=== PATIENT | male | born 1950 | race African-American/Black ===

== ENCOUNTER 2019-04-28 13:32 | Inpatient (IN) | payer MEDICARE ==
[~2019-04-28] VITALS: Ht 182.9 cm; Wt 75.8 kg
[2019-04-28] VITALS (7 sets, daily range): BP systolic 138–152; BP diastolic 58–75
--- NOTE | 2019-04-28 14:44 | EKG ---
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
[2019-04-28] MEDS ORDERED: IV NORMAL SALINE 1000ML BAG 1,000 ML IV ONE (14:45)
[2019-04-28] MEDS ORDERED: PANTOPRAZOLE IV PUSH 40 MG VIAL. IVP ONE (14:45)
[2019-04-28 15:03] LABS: BILIRUBIN,URINE NEGATIVE (NEG); CLARITY,URINE CLEAR; COLOR,URINE YELLOW; NITRITE,URINE NEGATIVE (NEG); PH,URINE 5.5; PROTEIN,URINE NEGATIVE (NEG-TRACE); UROBILINOGEN,URINE 0.2 mg/dL (0.2 mg/dL)
--- NOTE | 2019-04-28 15:03 | PHYS DOC ---
Past Medical History Past Medical History: High Cholesterol, Hypertension Past Surgical History: No Surgical History Alcohol Use: Occasionally Additional Information: 3 BEERS A DAY Drug Use: None Adult General Chief Complaint Chief Complaint: DIZZY/LIGHT HEADED HPI HPI Patient is a 69 year old male who presents with pain and cough back pain and black stool and dizziness. Patient complaining of left lower back pain for about 15 days as a constant sharp pain without radiation and rated his pain as a moderate pain. Patient also complaining of episodes of black stool for the same time that was loose for the first few days and became formed for the last few days. Patient states he has had a bowel movement once a day or once every other day and denies rectal pain, nausea and vomiting, fever and chills, hematuria, ecchymosis, taking lots in her medication. Complaining of mild abdominal pain and states for the last 2 weeks had positional dizziness associated with palpitation and generalized weakness and shortness of breath without chest pain. Patient denies history of GI bleeding but state he had history of ulcer disease. Patient did not seek medical attention for the last 2 weeks and today he called his primary care physician and was recommended to come to emergency room. Review of Systems Review of Systems Constitutional: Denies fever or chills [] Eyes: Denies change in visual acuity, redness, or eye pain [] HENT: Denies nasal congestion or sore throat [] Respiratory: Denies cough, reports shortness of breath [] Cardiovascular: No additional information not addressed in HPI [] GI: Denies vomiting, reports abdominal pain, nausea, bloody stools. : Denies dysuria or hematuria [] Musculoskeletal: Denies back pain or joint pain [] Integument: Denies rash or skin lesions [] Neurologic: Denies headache, focal weakness or sensory changes [] Endocrine: Denies polyuria or polydipsia [] All other systems were reviewed and found to be within normal limits, except as documented in this note. Current Medications Current Medications Current Medications Medications (Trade) Dose Ordered Sig/Lo Start Time Stop Time Status Last Admin Dose Admin Pantoprazole Sodium (PROTONIX VIAL for IV PUSH) 40 mg 1X ONCE 04/28/19 14:45 04/28/19 14:52 DC 04/28/19 15:07 40 MG Sodium Chloride 1,000 ml @ 1,000 mls/hr 1X ONCE 04/28/19 14:45 04/28/19 15:44 DC 04/28/19 15:07 1,000 MLS/HR Allergies Allergies Allergies Coded Allergies Type Severity Reaction Last Updated Verified No Known Drug Allergies 04/28/19 No Physical Exam Physical Exam Constitutional: Well developed, well nourished, mild distress, non-toxic ap pearance , looks pale. [] HENT: Normocephalic, atraumatic. Eyes: PERRLA, EOMI, conjunctiva normal, no discharge. [] Neck: Normal range of motion, no tenderness, supple, no stridor. 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 Skin: Warm, dry, no erythema, no rash. [] Back: No tenderness, no CVA tenderness. [] Extremities: No tenderness, no cyanosis, no clubbing, ROM intact, no edema. [] Neurologic: Alert and oriented X 3, no focal deficits noted. [] Psychologic: Affect normal, judgement normal, mood normal. [] Current Patient Data Vital Signs Vital Signs Date Time Temp Pulse Resp B/P (MAP) Pulse Ox O2 Delivery O2 Flow Rate FiO2 04/28/19 14:30 98.6 93 17 140/63 (88) 98 Room Air 98.6 Lab Values Laboratory Tests Test 04/28/19 14:45 White Blood Count 6.4 x10^3/uL (4.0-11.0) Red Blood Count 2.24 x10^6/uL (4.30-5.70) L Hemoglobin 6.9 g/dL (13.0-17.5) *L Hematocrit 20.6 % (39.0-53.0) *L Mean Corpuscular Volume 92 fL (79-100) Mean Corpuscular Hemoglobin 31 pg (25-35) Mean Corpuscular Hemoglobin Concent 33 g/dL (31-37) Red Cell Distribution Width 14.5 % (11.5-14.5) Platelet Count 176 x10^3/uL (140-400) Neutrophils (%) (Auto) 72 % (31-73) Lymphocytes (%) (Auto) 18 % (24-48) L Monocytes (%) (Auto) 10 % (0-9) H Eosinophils (%) (Auto) 0 % (0-3) Basophils (%) (Auto) 0 % (0-3) Neutrophils # (Auto) 4.6 x10^3/uL (1.8-7.7) Lymphocytes # (Auto) 1.1 x10^3/uL (1.0-4.8) Monocytes # (Auto) 0.6 x10^3/uL (0.0-1.1) Eosinophils # (Auto) 0.0 x10^3/uL (0.0-0.7) Basophils # (Auto) 0.0 x10^3/uL (0.0-0.2) Prothrombin Time 13.9 SEC (11.7-14.0) Prothrombin Time INR 1.1 (0.8-1.1) Activated Partial Thromboplast Time 27 SEC (24-38) Urine Collection Type Unknown Urine Color Yellow Urine Clarity Clear Urine pH 5.5 Urine Specific [place] 1.020 Urine Protein Negative mg/dL (NEG-TRACE) Urine Glucose (UA) Negative mg/dL (NEG) Urine Ketones (Stick) Negative mg/dL (NEG) Urine Blood Negative (NEG) Urine Nitrite Negative (NEG) Urine Bilirubin Negative (NEG) Urine Urobilinogen Dipstick 0.2 mg/dL (0.2 mg/dL) Urine Leukocyte Esterase Negative (NEG) Urine RBC 0 /HPF (0-2) Urine WBC 0 /HPF (0-4) Urine Squamous Epithelial Cells Few /LPF Urine Bacteria 0 /HPF (0-FEW) Stool Occult Blood Positive (NEG) Sodium Level 136 mmol/L (136-145) Potassium Level 3.8 mmol/L (3.5-5.1) Chloride Level 104 mmol/L (98-107) Carbon Dioxide Level 26 mmol/L (21-32) Anion Gap 6 (6-14) Blood Urea Nitrogen 36 mg/dL (8-26) H Creatinine 1.4 mg/dL (0.7-1.3) H Estimated GFR (Cockcroft-Gault) 60.6 BUN/Creatinine Ratio 26 (6-20) H Glucose Level 134 mg/dL (70-99) H Calcium Level 8.9 mg/dL (8.5-10.1) Total Bilirubin 0.2 mg/dL (0.2-1.0) Aspartate Amino Transferase (AST) 17 U/L (15-37) Alanine Aminotransferase (ALT) 20 U/L (16-63) Alkaline Phosphatase 56 U/L (46-116) Troponin I Quantitative < 0.017 ng/mL (0.000-0.055) YA-Uqb-W-Type Natriuretic Peptide 105 pg/mL (0-124) Total Protein 6.7 g/dL (6.4-8.2) Albumin 3.4 g/dL (3.4-5.0) Albumin/Globulin Ratio 1.0 (1.0-1.7) Lipase 90 U/L (73-393) Laboratory Tests 04/28/19 14:45 Laboratory Tests 04/28/19 14:45 EKG EKG EKG interpreted by me. EKG at 1419 showed normal sinus rhythm at rate of 85, abnormal] axis deviation, low voltage QRS, nonspecific intraventricular block, poor R-wave progress in anteroseptal leads, no acute distress and T-wave elevat ion. Radiology/Procedures Radiology/Procedures [] Course & Med Decision Making Course & Med Decision Making Pertinent Labs and Imaging studies reviewed. (See chart for details) Evaluation of patient in ER showed 6-year-old male patient with complaining of melena and back pain and dizziness for the last 2 weeks. Patient had obvious melena in rectal exam and pale mucosa. Hemoglobin was 6.9. CT of abdomen and pelvis with contrast is pending. Patient requiring admission for further evaluation and treatment. Discussed with Dr. Swenson who is in agreement with admission. Discussed findings and plan with patient and family, who acknowledge understanding and agreement. Dragon Disclaimer Dragon Disclaimer This electronic medical record was generated, in whole or in part, using a voice recognition dictation system. Departure Departure Impression: Primary Impression: GI bleeding Additional Impressions: Anemia Renal insufficiency Dizziness Back pain Disposition: 09 ADMITTED INPATIENT (at 1538) Admitting Physician: LOIS (Dr. Swenson accepted admission at 1537) Condition: IMPROVED Referrals: UNKNOWN PCP NAME (PCP) Problem Qualifiers Primary Impression: GI bleeding GI bleed type/associated pathology: unspecified gastrointestinal hemorrhage type Qualified Codes: K92.2 - Gastrointestinal hemorrhage, unspecified Additional Impressions: Anemia Anemia type: unspecified type Qualified Codes: D64.9 - Anemia, unspecified Back pain Back pain location: back pain in unspecified location Chronicity: unspecified Back pain laterality: unspecified Qualified Codes: M54.9 - Dorsalgia, unspecified CESAR ESPINOZA MD Apr 28, 2019 15:03
[2019-04-28 15:05] LABS: FECAL OB PT POSITIVE (NEG)
[2019-04-28 15:06] LABS: BASO % 0 % (0-3); EOS % 0 % (0-3); LYMPH # 1.1 x10^3/uL (1.0-4.8); LYMPH % 18 % (24-48); MEAN CORPUSCULAR HEMOGLOBIN 31 pg (25-35); MEAN CORPUSCULAR HGB CONC 33 g/dL (31-37); MEAN CORPUSCULAR VOLUME 92 fL (79-100); MONO # 0.6 x10^3/uL (0.0-1.1); MONO % 10 % (0-9); NEUT # 4.6 x10^3/uL (1.8-7.7); NEUT % 72 % (31-73); PLATELET COUNT 176 x10^3/uL (140-400); RED BLOOD COUNT 2.24 x10^6/uL (4.30-5.70); RED CELL DISTRIBUTION WIDTH 14.5 % (11.5-14.5); WHITE BLOOD COUNT 6.4 x10^3/uL (4.0-11.0)
[2019-04-28 15:10] LABS: BACTERIA,URINE 0 /HPF (0-FEW); RBC,URINE 0 /HPF (0-2); SQUAMOUS EPITHELIAL CELL,UR FEW /LPF; WBC,URINE 0 /HPF (0-4)
[2019-04-28 15:14] LABS: HEMOGLOBIN 6.9 g/dL (13.0-17.5)
[2019-04-28 15:15] LABS: HEMATOCRIT 20.6 % (39.0-53.0)
[2019-04-28 15:16] LABS: PROTHROMBIN TIME PATIENT 13.9 SEC (11.7-14.0)
[2019-04-28 15:21] LABS: CALCIUM 8.9 mg/dL (8.5-10.1); CREATININE 1.4 mg/dL (0.7-1.3); GFR 60.6; POTASSIUM 3.8 mmol/L (3.5-5.1)
[2019-04-28 15:27] LABS: ALBUMIN 3.4 g/dL (3.4-5.0); TOTAL BILIRUBIN 0.2 mg/dL (0.2-1.0); TOTAL PROTEIN 6.7 g/dL (6.4-8.2)
[2019-04-28] MEDS: IV NORMAL SALINE 1000ML BAG 1,000 ML IV SCH (15:59)
[2019-04-28] MEDS ORDERED: IOHEXOL 300 MG/ML 100ML VIAL. IV ONE (16:00)
[2019-04-28] MEDS ORDERED: CONTRAST GIVEN. MC PRN (16:00)
[2019-04-28] MEDS ORDERED: IOHEXOL 240 MG/ML 50ML VIAL. PO ONE (16:00)
[2019-04-28] MEDS: PANTOPRAZOLE SODIUM IV DRIP 80 MG in IV NORMAL SALINE 100ML 100 ML IV SCH (16:00)
--- NOTE | 2019-04-28 16:26 | PDOC2 ---
GI CONSULT Reason For Consult: Melena HPI: HPI: 69 y/o male seen in ER w/ Dr. Be. Black stools and left-sided pain x 2 weeks - first stools were loose, now are sticky and more formed. Also maybe had some epigastric tenderness. Found w/ Hgb 6.9, MCV 92, normal plt, BUN 36, Cr 1.4. Fecal occult was positive. Currently drinking contrast for CT. Takes ASA 81mg QD. Denies reflux/heartburn, n/v, constipation, hematochezia, melena. Appetite is good but might have lost some weight. H/o perforated ulcer w/ surgery years ago at [place]. Can't recall previous EGD or colonoscopy. No GB, liver, or pancreas history. Denies NSAIDs - records from PCP mention Medrol dose pack. PMH: PMH: HTN, HLD, allergic rhinitis, perforated ulcer w/ oversew FH: Family History: Cancer (brother - prostate), DM Social History: Smoke: No ALCOHOL: other (3-4 beers daily) Drugs: None ROS: GEN: Denies fevers, chills, sweats HEENT: Denies blurred vision, sore throat CV: Denies chest pain RESP: Denies shortness of air, cough GI: Per HPI : Denies hematuria, dysuria ENDO: +weight loss NEURO: Denies confusion, dizziness MSK: Denies weakness, joint pain/swelling SKIN: Denies jaundice, pruritus Vitals: Vitals: Vital Signs Date Time Temp Pulse Resp B/P (MAP) Pulse Ox O2 Delivery O2 Flow Rate FiO2 04/28/19 14:30 98.6 93 17 140/63 (88) 98 Room Air 98.6 Labs: Labs: Laboratory Tests Test 04/28/19 14:45 White Blood Count 6.4 x10^3/uL (4.0-11.0) Red Blood Count 2.24 x10^6/uL (4.30-5.70) Hemoglobin 6.9 g/dL (13.0-17.5) Hematocrit 20.6 % (39.0-53.0) Mean Corpuscular Volume 92 fL (79-100) Mean Corpuscular Hemoglobin 31 pg (25-35) Mean Corpuscular Hemoglobin Concent 33 g/dL (31-37) Red Cell Distribution Width 14.5 % (11.5-14.5) Platelet Count 176 x10^3/uL (140-400) Neutrophils (%) (Auto) 72 % (31-73) Lymphocytes (%) (Auto) 18 % (24-48) Monocytes (%) (Auto) 10 % (0-9) Eosinophils (%) (Auto) 0 % (0-3) Basophils (%) (Auto) 0 % (0-3) Neutrophils # (Auto) 4.6 x10^3/uL (1.8-7.7) Lymphocytes # (Auto) 1.1 x10^3/uL (1.0-4.8) Monocytes # (Auto) 0.6 x10^3/uL (0.0-1.1) Eosinophils # (Auto) 0.0 x10^3/uL (0.0-0.7) Basophils # (Auto) 0.0 x10^3/uL (0.0-0.2) Prothrombin Time 13.9 SEC (11.7-14.0) Prothromb Time International Ratio 1.1 (0.8-1.1) Activated Partial Thromboplast Time 27 SEC (24-38) Urine Collection Type Unknown Urine Color Yellow Urine Clarity Clear Urine pH 5.5 Urine Specific [place] 1.020 Urine Protein Negative mg/dL (NEG-TRACE) Urine Glucose (UA) Negative mg/dL (NEG) Urine Ketones (Stick) Negative mg/dL (NEG) Urine Blood Negative (NEG) Urine Nitrite Negative (NEG) Urine Bilirubin Negative (NEG) Urine Urobilinogen Dipstick 0.2 mg/dL (0.2 mg/dL) Urine Leukocyte Esterase Negative (NEG) Urine RBC 0 /HPF (0-2) Urine WBC 0 /HPF (0-4) Urine Squamous Epithelial Cells Few /LPF Urine Bacteria 0 /HPF (0-FEW) Stool Occult Blood Positive (NEG) Sodium Level 136 mmol/L (136-145) Potassium Level 3.8 mmol/L (3.5-5.1) Chloride Level 104 mmol/L (98-107) Carbon Dioxide Level 26 mmol/L (21-32) Anion Gap 6 (6-14) Blood Urea Nitrogen 36 mg/dL (8-26) Creatinine 1.4 mg/dL (0.7-1.3) Estimated GFR (Cockcroft-Gault) 60.6 BUN/Creatinine Ratio 26 (6-20) Glucose Level 134 mg/dL (70-99) Calcium Level 8.9 mg/dL (8.5-10.1) Total Bilirubin 0.2 mg/dL (0.2-1.0) Aspartate Amino Transf (AST/SGOT) 17 U/L (15-37) Alanine Aminotransferase (ALT/SGPT) 20 U/L (16-63) Alkaline Phosphatase 56 U/L (46-116) Troponin I Quantitative < 0.017 ng/mL (0.000-0.055) UL-Sga-O-Type Natriuretic Peptide 105 pg/mL (0-124) Total Protein 6.7 g/dL (6.4-8.2) Albumin 3.4 g/dL (3.4-5.0) Albumin/Globulin Ratio 1.0 (1.0-1.7) Lipase 90 U/L (73-393) Allergies: Coded Allergies: No Known Drug Allergies (Unverified , 04/28/19) Medications: Current Medications Medications (Trade) Dose Ordered Sig/Lo Route PRN Reason Start Time Stop Time Status Last Admin Dose Admin Pantoprazole Sodium (PROTONIX VIAL for IV PUSH) 40 mg 1X ONCE IVP 04/28/19 14:45 04/28/19 14:52 DC 04/28/19 15:07 Sodium Chloride 1,000 ml @ 1,000 mls/hr 1X ONCE IV 04/28/19 14:45 04/28/19 15:44 DC 04/28/19 15:07 Sodium Chloride 1,000 ml @ 100 mls/hr Q10H IV 04/28/19 15:37 04/29/19 15:36 04/28/19 15:59 Pantoprazole Sodium 80 mg/ Sodium Chloride 100 ml @ 10 mls/hr Q10H IV 04/28/19 15:45 04/28/19 16:00 PE: GEN: NAD HEENT: Atraumatic, PERRL LUNGS: CTAB HEART: RRR ABD: NABS, S/ND/NT EXTREMITY: No edema SKIN: No rashes, no jaundice NEURO/PSYCH: A & O 3 A/P: A/P: Dark stools Anemia, hemoccult positive H/o perforated ulcer CRC screen - none ?CKD ASA use -- Agree w/ transfusion. Could have clears. Agree w/ PPI - could change to IV push or PO. Can plan for EGD on Wednesday - can't do tonight because drinking contrast for CT GALE-DARLING FLORES Apr 28, 2019 16:26
--- NOTE | 2019-04-28 17:33 | RAD ---
CT abdomen and pelvis with contrast HISTORY: Melena, anemia, GI bleeding. PQRS statement: CT scans at this facility use dose reduction including either automated exposure control, iterative reconstructions, and /or weight based radiation dosing via mA and kV modification when appropriate to reduce radiation dose to as low as reasonably achievable. TECHNIQUE: Helical CT imaging abdomen and pelvis with 75 mL Omnipaque 300 intravenous contrast and oral contrast. COMPARISON: CT abdomen and pelvis February 12, 2011. Abdomen findings: Calcified granuloma left lung base. 7 cm right renal lower pole cyst and smaller bilateral renal hypodensities several of which are too small to characterize due to volume averaging but are stable to prior imaging most likely additional cysts. Adrenals, liver, gallbladder, pancreas and spleen are unremarkable. Groundglass density and subcentimeter mesenteric lymph nodes are mildly decreased since the prior exam with mild persistent edema most likely representing chronic or recurrent panniculitis. No enlarged adenopathy. Appendix is not visualized could be surgically absent or obscured by surrounding bowel loops no changes of appendicitis evident. No bowel obstruction or inflammatory change. There is prominent tortuosity of the sigmoid colon however there is no evidence of a closed loop obstruction or dilation of the more proximal bowel to suggest volvulus, and this is similar the prior exam. There is a large volume of stool. Aortoiliac artery calcified plaque. Pelvis findings: Bladder, prostate, rectum and bones are unremarkable. No pelvic fluid or adenopathy. IMPRESSION: 1. Large volume of stool may be constipation. Tortuosity of the sigmoid colon without volvulus as described above. 2. Appendix could not be visualized. 3. Renal cysts again demonstrated. 4. 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 Electronically signed by: Wallace Rodgers MD (04/28/2019 5:30 PM) [facility]
--- NOTE | 2019-04-28 22:35 | PDOC1 ---
History and Physical Date of Admission Date of Admission DATE: 04/28/19 TIME: 22:34 Source Source: Chart review, Patient History of Present Illness History of Present Illness Mr. Spann is a 69 year old male admit from the ER, presented with weakness and dyspnea on exertion, he also has had some back pain and black stool and dizziness. NOted left lower back pain for about 15 days as a constant sharp pain without radiation and rated his pain as a moderate pain. He complains of 2 weeks of darker stool, now black, ER team described as melena. some loose stools. No rectal pain, nausea and vomiting, fever and chills, He also had now had generalized weakness and shortness of breath without chest pain. Pt is retired. Past Medical History Cardiovascular: HTN Pulmonary: No pertinent hx Hepatobiliary: No pertinent hx Psych: No pertinent hx Musculoskeletal: low back pain Infectious disease: No pertinent hx Social History Smoke: No ALCOHOL: none (3-4 beers daily) Drugs: None Current Problem List Problem List Problems Medical Problems: (1) Anemia Status: Acute (2) Back pain Status: Acute (3) Dizziness Status: Acute (4) GI bleeding Status: Acute (5) Renal insufficiency Status: Acute Current Medications Current Medications Current Medications Pantoprazole Sodium (PROTONIX VIAL for IV PUSH) 40 mg 1X ONCE IVP Last administered on 04/28/19at 15:07; Start 04/28/19 at 14:45; Stop 04/28/19 at 14:52; Status DC Sodium Chloride 1,000 ml @ 1,000 mls/hr 1X ONCE IV Last administered on 04/28/19at 15:07; Start 04/28/19 at 14:45; Stop 04/28/19 at 15:44; Status DC Sodium Chloride 1,000 ml @ 100 mls/hr Q10H IV Last administered on 04/28/19at 15:59; Start 04/28/19 at 15:37; Stop 04/29/19 at 15:36 Pantoprazole Sodium 80 mg/ Sodium Chloride 100 ml @ 10 mls/hr Q10H IV Last administered on 04/28/19at 16:00; Start 04/28/19 at 15:45 Iohexol (Omnipaque 240 Mg/ml) 30 ml 1X ONCE PO Last administered on 04/28/19at 16:00; Start 04/28/19 at 16:00; Stop 04/28/19 at 16:01; Status DC Iohexol (Omnipaque 300 Mg/ml) 75 ml 1X ONCE IV Last administered on 04/28/19at 17:00; Start 04/28/19 at 16:00; Stop 04/28/19 at 16:01; Status DC Info (CONTRAST GIVEN -- Rx MONITORING) 1 each PRN DAILY PRN MC SEE COMMENTS; Start 04/28/19 at 16:00; Stop 04/30/19 at 15:59 Allergies Allergies: Coded Allergies: No Known Drug Allergies (Unverified , 04/28/19) ROS General: No: Chills, Night Sweats, Fatigue, Malaise, Appetite, Other PSYCHOLOGICAL ROS: No: Anxiety, Behavioral Disorder, Concentration difficultie, Decreased libido, Depression, Disorientation, Hallucinations, Hostility, Irritablity, Memory difficulties, Mood Swings, Obsessive thoughts, Physical abuse, Sexual abuse, Sleep disturbances, Suicidal ideation, Other Eyes: No Blurry vision, No Decreased vision, No Double vision, No Dry eyes, No Excessive tearing, No Eye Pain, No Itchy Eyes, No Loss of vision, No Photophobia, No Scotomata, No Uses contacts, No Uses glasses, No Other HEENT: No: Heacaches, Visual Changes, Hearing change, Nasal congestion, Nasal discharge, Oral lesions, Sinus pain, Sore Throat, Epistaxis, Sneezing, Snoring, Tinnitus, Vertigo, Vocal changes, Other Respiratory: YES: SOB with excertion, Tachypnea; No: Cough, Hemoptysis, Orthopnea, Pleuritic Pain, Shortness of breath, Sputum Changes, Stridor, Wheezing, Other Cardiovascular: No Chest Pain, No Palpitations, No Orthopnea, No Paroxysmal Noc. Dyspnea, No Edema, No Lt Headedness, No Other Gastrointestinal: No Nausea, No Vomiting, No Abdominal Pain, No Diarrhea, No Constipation, No Melena, No Hematochezia, No Other Genitourinary: No Dysuria, No Frequency, No Incontinence, No Hematuria, No Retention, No Discharge, No Urgency, No Pain, No Flank Pain, No Other, No , No , No , No , No , No , No Musculoskeletal: Yes Joint Stiffness Neurological: No Behavorial Changes, No Bowel/Bladder ControlChng, No Confusion , No Dizziness, No Gait Disturbance, No Headaches, No Impaired Coord/balance, No Memory Loss, No Numbness/Tingling, No Seizures, No Speech Problems, No Tremors, No Visual Changes, No Weakness, No Other Skin: Yes Dry Skin; No Eczema, No Hair Changes, No Lumps, No Mole Changes, No Mottling, No Nail Changes, No Pruritus, No Rash, No Skin Lesion Changes, No Other, No Acne Physical Exam General: Alert, Oriented X3, mild distress HEENT: Atraumatic, PERRLA, EOMI Lungs: Clear to auscultation, Normal air movement Heart: RRR, murmurs Abdomen: Normal bowel sounds, Soft Rectal Exam: not examined Extremities: No cyanosis, No edema Skin: No rashes, No breakdown, No significant lesion Neuro: Normal gait, Normal speech, Sensation intact Psych/Mental Status: Mental status NL, Mood NL Vitals Vitals Vital Signs Date Time Temp Pulse Resp B/P (MAP) Pulse Ox O2 Delivery O2 Flow Rate FiO2 04/28/19 22:05 98.7 74 16 141/63 98.7 04/28/19 20:20 Room Air 04/28/19 20:17 99 Labs Labs Laboratory Tests Test 04/28/19 14:45 White Blood Count 6.4 x10^3/uL (4.0-11.0) Red Blood Count 2.24 x10^6/uL (4.30-5.70) Hemoglobin 6.9 g/dL (13.0-17.5) Hematocrit 20.6 % (39.0-53.0) Mean Corpuscular Volume 92 fL (79-100) Mean Corpuscular Hemoglobin 31 pg (25-35) Mean Corpuscular Hemoglobin Concent 33 g/dL (31-37) Red Cell Distribution Width 14.5 % (11.5-14.5) Platelet Count 176 x10^3/uL (140-400) Neutrophils (%) (Auto) 72 % (31-73) Lymphocytes (%) (Auto) 18 % (24-48) Monocytes (%) (Auto) 10 % (0-9) Eosinophils (%) (Auto) 0 % (0-3) Basophils (%) (Auto) 0 % (0-3) Neutrophils # (Auto) 4.6 x10^3/uL (1.8-7.7) Lymphocytes # (Auto) 1.1 x10^3/uL (1.0-4.8) Monocytes # (Auto) 0.6 x10^3/uL (0.0-1.1) Eosinophils # (Auto) 0.0 x10^3/uL (0.0-0.7) Basophils # (Auto) 0.0 x10^3/uL (0.0-0.2) Prothrombin Time 13.9 SEC (11.7-14.0) Prothromb Time International Ratio 1.1 (0.8-1.1) Activated Partial Thromboplast Time 27 SEC (24-38) Urine Collection Type Unknown Urine Color Yellow Urine Clarity Clear Urine pH 5.5 Urine Specific Vernal 1.020 Urine Protein Negative mg/dL (NEG-TRACE) Urine Glucose (UA) Negative mg/dL (NEG) Urine Ketones (Stick) Negative mg/dL (NEG) Urine Blood Negative (NEG) Urine Nitrite Negative (NEG) Urine Bilirubin Negative (NEG) Urine Urobilinogen Dipstick 0.2 mg/dL (0.2 mg/dL) Urine Leukocyte Esterase Negative (NEG) Urine RBC 0 /HPF (0-2) Urine WBC 0 /HPF (0-4) Urine Squamous Epithelial Cells Few /LPF Urine Bacteria 0 /HPF (0-FEW) Stool Occult Blood Positive (NEG) Sodium Level 136 mmol/L (136-145) Potassium Level 3.8 mmol/L (3.5-5.1) Chloride Level 104 mmol/L (98-107) Carbon Dioxide Level 26 mmol/L (21-32) Anion Gap 6 (6-14) Blood Urea Nitrogen 36 mg/dL (8-26) Creatinine 1.4 mg/dL (0.7-1.3) Estimated GFR (Cockcroft-Gault) 60.6 BUN/Creatinine Ratio 26 (6-20) Glucose Level 134 mg/dL (70-99) Calcium Level 8.9 mg/dL (8.5-10.1) Iron Level 67 ug/dL (65-175) Total Iron Binding Capacity 261 ug/dL (250-450) Iron Saturation 26 % (15-34) Total Bilirubin 0.2 mg/dL (0.2-1.0) Aspartate Amino Transf (AST/SGOT) 17 U/L (15-37) Alanine Aminotransferase (ALT/SGPT) 20 U/L (16-63) Alkaline Phosphatase 56 U/L (46-116) Troponin I Quantitative < 0.017 ng/mL (0.000-0.055) OW-[id number]-[id number]-Type Natriuretic Peptide 105 pg/mL (0-124) Total Protein 6.7 g/dL (6.4-8.2) Albumin 3.4 g/dL (3.4-5.0) Albumin/Globulin Ratio 1.0 (1.0-1.7) Lipase 90 U/L (73-393) Laboratory Tests Test 04/28/19 14:45 White Blood Count 6.4 x10^3/uL (4.0-11.0) Red Blood Count 2.24 x10^6/uL (4.30-5.70) Hemoglobin 6.9 g/dL (13.0-17.5) Hematocrit 20.6 % (39.0-53.0) Mean Corpuscular Volume 92 fL (79-100) Mean Corpuscular Hemoglobin 31 pg (25-35) Mean Corpuscular Hemoglobin Concent 33 g/dL (31-37) Red Cell Distribution Width 14.5 % (11.5-14.5) Platelet Count 176 x10^3/uL (140-400) Neutrophils (%) (Auto) 72 % (31-73) Lymphocytes (%) (Auto) 18 % (24-48) Monocytes (%) (Auto) 10 % (0-9) Eosinophils (%) (Auto) 0 % (0-3) Basophils (%) (Auto) 0 % (0-3) Neutrophils # (Auto) 4.6 x10^3/uL (1.8-7.7) Lymphocytes # (Auto) 1.1 x10^3/uL (1.0-4.8) Monocytes # (Auto) 0.6 x10^3/uL (0.0-1.1) Eosinophils # (Auto) 0.0 x10^3/uL (0.0-0.7) Basophils # (Auto) 0.0 x10^3/uL (0.0-0.2) Prothrombin Time 13.9 SEC (11.7-14.0) Prothromb Time International Ratio 1.1 (0.8-1.1) Activated Partial Thromboplast Time 27 SEC (24-38) Urine Collection Type Unknown Urine Color Yellow Urine Clarity Clear Urine pH 5.5 Urine Specific Vernal 1.020 Urine Protein Negative mg/dL (NEG-TRACE) Urine Glucose (UA) Negative mg/dL (NEG) Urine Ketones (Stick) Negative mg/dL (NEG) Urine Blood Negative (NEG) Urine Nitrite Negative (NEG) Urine Bilirubin Negative (NEG) Urine Urobilinogen Dipstick 0.2 mg/dL (0.2 mg/dL) Urine Leukocyte Esterase Negative (NEG) Urine RBC 0 /HPF (0-2) Urine WBC 0 /HPF (0-4) Urine Squamous Epithelial Cells Few /LPF Urine Bacteria 0 /HPF (0-FEW) Stool Occult Blood Positive (NEG) Sodium Level 136 mmol/L (136-145) Potassium Level 3.8 mmol/L (3.5-5.1) Chloride Level 104 mmol/L (98-107) Carbon Dioxide Level 26 mmol/L (21-32) Anion Gap 6 (6-14) Blood Urea Nitrogen 36 mg/dL (8-26) Creatinine 1.4 mg/dL (0.7-1.3) Estimated GFR (Cockcroft-Gault) 60.6 BUN/Creatinine Ratio 26 (6-20) Glucose Level 134 mg/dL (70-99) Calcium Level 8.9 mg/dL (8.5-10.1) Iron Level 67 ug/dL (65-175) Total Iron Binding Capacity 261 ug/dL (250-450) Iron Saturation 26 % (15-34) Total Bilirubin 0.2 mg/dL (0.2-1.0) Aspartate Amino Transf (AST/SGOT) 17 U/L (15-37) Alanine Aminotransferase (ALT/SGPT) 20 U/L (16-63) Alkaline Phosphatase 56 U/L (46-116) Troponin I Quantitative < 0.017 ng/mL (0.000-0.055) LM-Rxq-L-Type Natriuretic Peptide 105 pg/mL (0-124) Total Protein 6.7 g/dL (6.4-8.2) Albumin 3.4 g/dL (3.4-5.0) Albumin/Globulin Ratio 1.0 (1.0-1.7) Lipase 90 U/L (73-393) VTE Prophylaxis Ordered VTE Prophylaxis Devices: Yes VTE Pharmacological Prophylaxi: Contraindicated Assessment/Plan Assessment/Plan symptomatic anemia GI bleed, upper melena consult GI, start PPI gtt, clears, admit PRBC ordered JUANY GRIFFITH MD Apr 28, 2019 22:35
[2019-04-29] VITALS (9 sets, daily range): BP systolic 134–150; BP diastolic 61–71
[2019-04-29] MEDS: PANTOPRAZOLE SODIUM IV DRIP 80 MG in IV NORMAL SALINE 100ML 100 ML IV SCH ×3 (01:41→22:18)
[2019-04-29] MEDS: IV NORMAL SALINE 1000ML BAG 1,000 ML IV SCH ×2 (01:41→11:54)
[2019-04-29 05:11] LABS: BASO % 0 % (0-3); EOS % 0 % (0-3); HEMATOCRIT 26.4 % (39.0-53.0); HEMOGLOBIN 8.7 g/dL (13.0-17.5); LYMPH # 1.5 x10^3/uL (1.0-4.8); LYMPH % 24 % (24-48); MEAN CORPUSCULAR HEMOGLOBIN 30 pg (25-35); MEAN CORPUSCULAR HGB CONC 33 g/dL (31-37); MEAN CORPUSCULAR VOLUME 90 fL (79-100); MONO # 0.7 x10^3/uL (0.0-1.1); MONO % 10 % (0-9); NEUT # 4.3 x10^3/uL (1.8-7.7); NEUT % 66 % (31-73); PLATELET COUNT 163 x10^3/uL (140-400); RED BLOOD COUNT 2.92 x10^6/uL (4.30-5.70); WHITE BLOOD COUNT 6.6 x10^3/uL (4.0-11.0)
[2019-04-29 08:05] LABS: BASO % 0 % (0-3); EOS % 0 % (0-3); HEMATOCRIT 26.5 % (39.0-53.0); HEMOGLOBIN 8.9 g/dL (13.0-17.5); LYMPH # 1.3 x10^3/uL (1.0-4.8); LYMPH % 22 % (24-48); MEAN CORPUSCULAR HEMOGLOBIN 30 pg (25-35); MEAN CORPUSCULAR HGB CONC 34 g/dL (31-37); MEAN CORPUSCULAR VOLUME 90 fL (79-100); MONO # 0.7 x10^3/uL (0.0-1.1); MONO % 11 % (0-9); NEUT # 3.8 x10^3/uL (1.8-7.7); NEUT % 66 % (31-73); PLATELET COUNT 158 x10^3/uL (140-400); RED BLOOD COUNT 2.95 x10^6/uL (4.30-5.70); RED CELL DISTRIBUTION WIDTH 13.8 % (11.5-14.5); WHITE BLOOD COUNT 5.7 x10^3/uL (4.0-11.0)
[2019-04-29 08:28] LABS: CALCIUM 9.2 mg/dL (8.5-10.1); CREATININE 1.1 mg/dL (0.7-1.3); GFR 80.1; POTASSIUM 4.1 mmol/L (3.5-5.1)
[2019-04-29] MEDS ORDERED: BISACODYL 10 MG SUPP.RECT. PR PRN (09:15)
--- NOTE | 2019-04-29 09:16 | PDOC ---
PROGRESS NOTES Chief Complaint Chief Complaint A/P: Acute blood loss anemia - improved Hb from 6.9 to 8.9 with 2u PRBC ELLY - likely vasomotor nephropathy from poor PO intake, constipation, Cr improved from 1.4 already HTN HLD History of Present Illness History of Present Illness Mr Spann is a 69 y/o male w/ PMHx who c/o black stools and left-sided pain for 2 weeks with some epigastric tenderness who was found w/ Hgb 6.9, MCV 92, normal plt, BUN 36, Cr 1.4. Fecal occult was positive. Admitted with GI consulted for further care. This morning still having pain, states it is a bit better. He is asking when he can eat solid food again. Has had 1 dark melena stool overnight. Denies CP or SOB. Cr improved already. Vitals Vitals Vital Signs Date Time Temp Pulse Resp B/P (MAP) Pulse Ox O2 Delivery O2 Flow Rate FiO2 04/29/19 07:00 97.9 74 18 145/67 (93) 92 Room Air 97.9 Physical Exam General: Alert, Oriented X3, mild distress Abdomen: Normal bowel sounds, Soft Extremities: No cyanosis, No edema Skin: No rashes, No breakdown, No significant lesion Labs LABS Laboratory Tests Test 04/28/19 14:45 04/29/19 04:10 04/29/19 08:00 White Blood Count 6.4 x10^3/uL (4.0-11.0) 6.6 x10^3/uL (4.0-11.0) 5.7 x10^3/uL (4.0-11.0) Red Blood Count 2.24 x10^6/uL (4.30-5.70) 2.92 x10^6/uL (4.30-5.70) 2.95 x10^6/uL (4.30-5.70) Hemoglobin 6.9 g/dL (13.0-17.5) 8.7 g/dL (13.0-17.5) 8.9 g/dL (13.0-17.5) Hematocrit 20.6 % (39.0-53.0) 26.4 % (39.0-53.0) 26.5 % (39.0-53.0) Mean Corpuscular Volume 92 fL (79-100) 90 fL (79-100) 90 fL (79-100) Mean Corpuscular Hemoglobin 31 pg (25-35) 30 pg (25-35) 30 pg (25-35) Mean Corpuscular Hemoglobin Concent 33 g/dL (31-37) 33 g/dL (31-37) 34 g/dL (31-37) Red Cell Distribution Width 14.5 % (11.5-14.5) 14.0 % (11.5-14.5) 13.8 % (11.5-14.5) Platelet Count 176 x10^3/uL (140-400) 163 x10^3/uL (140-400) 158 x10^3/uL (140-400) Neutrophils (%) (Auto) 72 % (31-73) 66 % (31-73) 66 % (31-73) Lymphocytes (%) (Auto) 18 % (24-48) 24 % (24-48) 22 % (24-48) Monocytes (%) (Auto) 10 % (0-9) 10 % (0-9) 11 % (0-9) Eosinophils (%) (Auto) 0 % (0-3) 0 % (0-3) 0 % (0-3) Basophils (%) (Auto) 0 % (0-3) 0 % (0-3) 0 % (0-3) Neutrophils # (Auto) 4.6 x10^3/uL (1.8-7.7) 4.3 x10^3/uL (1.8-7.7) 3.8 x10^3/uL (1.8-7.7) Lymphocytes # (Auto) 1.1 x10^3/uL (1.0-4.8) 1.5 x10^3/uL (1.0-4.8) 1.3 x10^3/uL (1.0-4.8) Monocytes # (Auto) 0.6 x10^3/uL (0.0-1.1) 0.7 x10^3/uL (0.0-1.1) 0.7 x10^3/uL (0.0-1.1) Eosinophils # (Auto) 0.0 x10^3/uL (0.0-0.7) 0.0 x10^3/uL (0.0-0.7) 0.0 x10^3/uL (0.0-0.7) Basophils # (Auto) 0.0 x10^3/uL (0.0-0.2) 0.0 x10^3/uL (0.0-0.2) 0.0 x10^3/uL (0.0-0.2) Prothrombin Time 13.9 SEC (11.7-14.0) Prothromb Time International Ratio 1.1 (0.8-1.1) Activated Partial Thromboplast Time 27 SEC (24-38) Urine Collection Type Unknown Urine Color Yellow Urine Clarity Clear Urine pH 5.5 Urine Specific Mobile 1.020 Urine Protein Negative mg/dL (NEG-TRACE) Urine Glucose (UA) Negative mg/dL (NEG) Urine Ketones (Stick) Negative mg/dL (NEG) Urine Blood Negative (NEG) Urine Nitrite Negative (NEG) Urine Bilirubin Negative (NEG) Urine Urobilinogen Dipstick 0.2 mg/dL (0.2 mg/dL) Urine Leukocyte Esterase Negative (NEG) Urine RBC 0 /HPF (0-2) Urine WBC 0 /HPF (0-4) Urine Squamous Epithelial Cells Few /LPF Urine Bacteria 0 /HPF (0-FEW) Stool Occult Blood Positive (NEG) Sodium Level 136 mmol/L (136-145) 142 mmol/L (136-145) Potassium Level 3.8 mmol/L (3.5-5.1) 4.1 mmol/L (3.5-5.1) Chloride Level 104 mmol/L (98-107) 109 mmol/L (98-107) Carbon Dioxide Level 26 mmol/L (21-32) 25 mmol/L (21-32) Anion Gap 6 (6-14) 8 (6-14) Blood Urea Nitrogen 36 mg/dL (8-26) 19 mg/dL (8-26) Creatinine 1.4 mg/dL (0.7-1.3) 1.1 mg/dL (0.7-1.3) Estimated GFR (Cockcroft-Gault) 60.6 80.1 BUN/Creatinine Ratio 26 (6-20) Glucose Level 134 mg/dL (70-99) 110 mg/dL (70-99) Calcium Level 8.9 mg/dL (8.5-10.1) 9.2 mg/dL (8.5-10.1) Iron Level 67 ug/dL (65-175) Total Iron Binding Capacity 261 ug/dL (250-450) Iron Saturation 26 % (15-34) Total Bilirubin 0.2 mg/dL (0.2-1.0) Aspartate Amino Transf (AST/SGOT) 17 U/L (15-37) Alanine Aminotransferase (ALT/SGPT) 20 U/L (16-63) Alkaline Phosphatase 56 U/L (46-116) Troponin I Quantitative < 0.017 ng/mL (0.000-0.055) SP-Chv-J-Type Natriuretic Peptide 105 pg/mL (0-124) Total Protein 6.7 g/dL (6.4-8.2) Albumin 3.4 g/dL (3.4-5.0) Albumin/Globulin Ratio 1.0 (1.0-1.7) Lipase 90 U/L (73-393) Assessment and Plan Assessmemt and Plan Problems Medical Problems: (1) Anemia Status: Acute (2) Back pain Status: Acute (3) Dizziness Status: Acute (4) GI bleeding Status: Acute (5) Renal insufficiency Status: Acute Comment Review of Relevant I have reviewed the following items ignacio (where applicable) has been applied. Labs Laboratory Tests Test 04/28/19 14:45 04/29/19 04:10 04/29/19 08:00 White Blood Count 6.4 x10^3/uL (4.0-11.0) 6.6 x10^3/uL (4.0-11.0) 5.7 x10^3/uL (4.0-11.0) Red Blood Count 2.24 x10^6/uL (4.30-5.70) 2.92 x10^6/uL (4.30-5.70) 2.95 x10^6/uL (4.30-5.70) Hemoglobin 6.9 g/dL (13.0-17.5) 8.7 g/dL (13.0-17.5) 8.9 g/dL (13.0-17.5) Hematocrit 20.6 % (39.0-53.0) 26.4 % (39.0-53.0) 26.5 % (39.0-53.0) Mean Corpuscular Volume 92 fL (79-100) 90 fL (79-100) 90 fL (79-100) Mean Corpuscular Hemoglobin 31 pg (25-35) 30 pg (25-35) 30 pg (25-35) Mean Corpuscular Hemoglobin Concent 33 g/dL (31-37) 33 g/dL (31-37) 34 g/dL (31-37) Red Cell Distribution Width 14.5 % (11.5-14.5) 14.0 % (11.5-14.5) 13.8 % (11.5-14.5) Platelet Count 176 x10^3/uL (140-400) 163 x10^3/uL (140-400) 158 x10^3/uL (140-400) Neutrophils (%) (Auto) 72 % (31-73) 66 % (31-73) 66 % (31-73) Lymphocytes (%) (Auto) 18 % (24-48) 24 % (24-48) 22 % (24-48) Monocytes (%) (Auto) 10 % (0-9) 10 % (0-9) 11 % (0-9) Eosinophils (%) (Auto) 0 % (0-3) 0 % (0-3) 0 % (0-3) Basophils (%) (Auto) 0 % (0-3) 0 % (0-3) 0 % (0-3) Neutrophils # (Auto) 4.6 x10^3/uL (1.8-7.7) 4.3 x10^3/uL (1.8-7.7) 3.8 x10^3/uL (1.8-7.7) Lymphocytes # (Auto) 1.1 x10^3/uL (1.0-4.8) 1.5 x10^3/uL (1.0-4.8) 1.3 x10^3/uL (1.0-4.8) Monocytes # (Auto) 0.6 x10^3/uL (0.0-1.1) 0.7 x10^3/uL (0.0-1.1) 0.7 x10^3/uL (0.0-1.1) Eosinophils # (Auto) 0.0 x10^3/uL (0.0-0.7) 0.0 x10^3/uL (0.0-0.7) 0.0 x10^3/uL (0.0-0.7) Basophils # (Auto) 0.0 x10^3/uL (0.0-0.2) 0.0 x10^3/uL (0.0-0.2) 0.0 x10^3/uL (0.0-0.2) Prothrombin Time 13.9 SEC (11.7-14.0) Prothromb Time International Ratio 1.1 (0.8-1.1) Activated Partial Thromboplast Time 27 SEC (24-38) Urine Collection Type Unknown Urine Color Yellow Urine Clarity Clear Urine pH 5.5 Urine Specific Mobile 1.020 Urine Protein Negative mg/dL (NEG-TRACE) Urine Glucose (UA) Negative mg/dL (NEG) Urine Ketones (Stick) Negative mg/dL (NEG) Urine Blood Negative (NEG) Urine Nitrite Negative (NEG) Urine Bilirubin Negative (NEG) Urine Urobilinogen Dipstick 0.2 mg/dL (0.2 mg/dL) Urine Leukocyte Esterase Negative (NEG) Urine RBC 0 /HPF (0-2) Urine WBC 0 /HPF (0-4) Urine Squamous Epithelial Cells Few /LPF Urine Bacteria 0 /HPF (0-FEW) Stool Occult Blood Positive (NEG) Sodium Level 136 mmol/L (136-145) 142 mmol/L (136-145) Potassium Level 3.8 mmol/L (3.5-5.1) 4.1 mmol/L (3.5-5.1) Chloride Level 104 mmol/L (98-107) 109 mmol/L (98-107) Carbon Dioxide Level 26 mmol/L (21-32) 25 mmol/L (21-32) Anion Gap 6 (6-14) 8 (6-14) Blood Urea Nitrogen 36 mg/dL (8-26) 19 mg/dL (8-26) Creatinine 1.4 mg/dL (0.7-1.3) 1.1 mg/dL (0.7-1.3) Estimated GFR (Cockcroft-Gault) 60.6 80.1 BUN/Creatinine Ratio 26 (6-20) Glucose Level 134 mg/dL (70-99) 110 mg/dL (70-99) Calcium Level 8.9 mg/dL (8.5-10.1) 9.2 mg/dL (8.5-10.1) Iron Level 67 ug/dL (65-175) Total Iron Binding Capacity 261 ug/dL (250-450) Iron Saturation 26 % (15-34) Total Bilirubin 0.2 mg/dL (0.2-1.0) Aspartate Amino Transf (AST/SGOT) 17 U/L (15-37) Alanine Aminotransferase (ALT/SGPT) 20 U/L (16-63) Alkaline Phosphatase 56 U/L (46-116) Troponin I Quantitative < 0.017 ng/mL (0.000-0.055) XU-Ztm-T-Type Natriuretic Peptide 105 pg/mL (0-124) Total Protein 6.7 g/dL (6.4-8.2) Albumin 3.4 g/dL (3.4-5.0) Albumin/Globulin Ratio 1.0 (1.0-1.7) Lipase 90 U/L (73-393) Laboratory Tests Test 04/28/19 14:45 04/29/19 04:10 04/29/19 08:00 White Blood Count 6.4 x10^3/uL (4.0-11.0) 6.6 x10^3/uL (4.0-11.0) 5.7 x10^3/uL (4.0-11.0) Red Blood Count 2.24 x10^6/uL (4.30-5.70) 2.92 x10^6/uL (4.30-5.70) 2.95 x10^6/uL (4.30-5.70) Hemoglobin 6.9 g/dL (13.0-17.5) 8.7 g/dL (13.0-17.5) 8.9 g/dL (13.0-17.5) Hematocrit 20.6 % (39.0-53.0) 26.4 % (39.0-53.0) 26.5 % (39.0-53.0) Mean Corpuscular Volume 92 fL (79-100) 90 fL (79-100) 90 fL (79-100) Mean Corpuscular Hemoglobin 31 pg (25-35) 30 pg (25-35) 30 pg (25-35) Mean Corpuscular Hemoglobin Concent 33 g/dL (31-37) 33 g/dL (31-37) 34 g/dL (31-37) Red Cell Distribution Width 14.5 % (11.5-14.5) 14.0 % (11.5-14.5) 13.8 % (11.5-14.5) Platelet Count 176 x10^3/uL (140-400) 163 x10^3/uL (140-400) 158 x10^3/uL (140-400) Neutrophils (%) (Auto) 72 % (31-73) 66 % (31-73) 66 % (31-73) Lymphocytes (%) (Auto) 18 % (24-48) 24 % (24-48) 22 % (24-48) Monocytes (%) (Auto) 10 % (0-9) 10 % (0-9) 11 % (0-9) Eosinophils (%) (Auto) 0 % (0-3) 0 % (0-3) 0 % (0-3) Basophils (%) (Auto) 0 % (0-3) 0 % (0-3) 0 % (0-3) Neutrophils # (Auto) 4.6 x10^3/uL (1.8-7.7) 4.3 x10^3/uL (1.8-7.7) 3.8 x10^3/uL (1.8-7.7) Lymphocytes # (Auto) 1.1 x10^3/uL (1.0-4.8) 1.5 x10^3/uL (1.0-4.8) 1.3 x10^3/uL (1.0-4.8) Monocytes # (Auto) 0.6 x10^3/uL (0.0-1.1) 0.7 x10^3/uL (0.0-1.1) 0.7 x10^3/uL (0.0-1.1) Eosinophils # (Auto) 0.0 x10^3/uL (0.0-0.7) 0.0 x10^3/uL (0.0-0.7) 0.0 x10^3/uL (0.0-0.7) Basophils # (Auto) 0.0 x10^3/uL (0.0-0.2) 0.0 x10^3/uL (0.0-0.2) 0.0 x10^3/uL (0.0-0.2) Prothrombin Time 13.9 SEC (11.7-14.0) Prothromb Time International Ratio 1.1 (0.8-1.1) Activated Partial Thromboplast Time 27 SEC (24-38) Urine Collection Type Unknown Urine Color Yellow Urine Clarity Clear Urine pH 5.5 Urine Specific Mobile 1.020 Urine Protein Negative mg/dL (NEG-TRACE) Urine Glucose (UA) Negative mg/dL (NEG) Urine Ketones (Stick) Negative mg/dL (NEG) Urine Blood Negative (NEG) Urine Nitrite Negative (NEG) Urine Bilirubin Negative (NEG) Urine Urobilinogen Dipstick 0.2 mg/dL (0.2 mg/dL) Urine Leukocyte Esterase Negative (NEG) Urine RBC 0 /HPF (0-2) Urine WBC 0 /HPF (0-4) Urine Squamous Epithelial Cells Few /LPF Urine Bacteria 0 /HPF (0-FEW) Stool Occult Blood Positive (NEG) Sodium Level 136 mmol/L (136-145) 142 mmol/L (136-145) Potassium Level 3.8 mmol/L (3.5-5.1) 4.1 mmol/L (3.5-5.1) Chloride Level 104 mmol/L (98-107) 109 mmol/L (98-107) Carbon Dioxide Level 26 mmol/L (21-32) 25 mmol/L (21-32) Anion Gap 6 (6-14) 8 (6-14) Blood Urea Nitrogen 36 mg/dL (8-26) 19 mg/dL (8-26) Creatinine 1.4 mg/dL (0.7-1.3) 1.1 mg/dL (0.7-1.3) Estimated GFR (Cockcroft-Gault) 60.6 80.1 BUN/Creatinine Ratio 26 (6-20) Glucose Level 134 mg/dL (70-99) 110 mg/dL (70-99) Calcium Level 8.9 mg/dL (8.5-10.1) 9.2 mg/dL (8.5-10.1) Iron Level 67 ug/dL (65-175) Total Iron Binding Capacity 261 ug/dL (250-450) Iron Saturation 26 % (15-34) Total Bilirubin 0.2 mg/dL (0.2-1.0) Aspartate Amino Transf (AST/SGOT) 17 U/L (15-37) Alanine Aminotransferase (ALT/SGPT) 20 U/L (16-63) Alkaline Phosphatase 56 U/L (46-116) Troponin I Quantitative < 0.017 ng/mL (0.000-0.055) PG-Kec-S-Type Natriuretic Peptide 105 pg/mL (0-124) Total Protein 6.7 g/dL (6.4-8.2) Albumin 3.4 g/dL (3.4-5.0) Albumin/Globulin Ratio 1.0 (1.0-1.7) Lipase 90 U/L (73-393) Medications Current Medications Pantoprazole Sodium (PROTONIX VIAL for IV PUSH) 40 mg 1X ONCE IVP Last administered on 04/28/19 15:07; Start 04/28/19 at 14:45; Stop 04/28/19 at 14:52; Status DC Sodium Chloride 1,000 ml @ 1,000 mls/hr 1X ONCE IV Last administered on 04/28/19at 15:07; Start 04/28/19 at 14:45; Stop 04/28/19 at 15:44; Status DC Sodium Chloride 1,000 ml @ 100 mls/hr Q10H IV Last administered on 04/28/19at 15:59; Start 04/28/19 at 15:37; Stop 04/29/19 at 15:36 Pantoprazole Sodium 80 mg/ Sodium Chloride 100 ml @ 10 mls/hr Q10H IV Last administered on 04/28/19 16:00; Start 04/28/19 at 15:45 Iohexol (Omnipaque 240 Mg/ml) 30 ml 1X ONCE PO Last administered on 04/28/19 16:00; Start 04/28/19 at 16:00; Stop 04/28/19 at 16:01; Status DC Iohexol (Omnipaque 300 Mg/ml) 75 ml 1X ONCE IV Last administered on 04/28/19at 17:00; Start 04/28/19 at 16:00; Stop 04/28/19 at 16:01; Status DC Info (CONTRAST GIVEN -- Rx MONITORING) 1 each PRN DAILY PRN MC SEE COMMENTS; Start 04/28/19 at 16:00; Stop 04/30/19 at 15:59 Vitals/I & O Vital Sign - Last 24 Hours 04/28/19 04/28/19 04/28/19 04/28/19 14:30 15:06 15:11 15:41 Temp 98.6 98.6 Pulse 93 86 86 82 Resp 17 B/P (MAP) 140/63 (88) Pulse Ox 98 97 97 98 O2 Delivery Room Air 04/28/19 04/28/19 04/28/19 04/28/19 16:41 17:35 19:00 19:41 Temp 98.5 98.2 98.5 98.2 Pulse 86 95 86 87 Resp 18 14 16 B/P (MAP) 140/58 (85) 150/69 Pulse Ox 97 98 O2 Delivery Room Air Room Air 04/28/19 04/28/19 04/28/19 04/28/19 20:00 20:17 20:20 20:51 Temp 98.3 98.3 98.8 98.3 98.3 98.8 Pulse 78 78 77 Resp 16 16 16 B/P (MAP) 152/75 152/75 (100) 139/64 Pulse Ox 99 O2 Delivery Room Air Room Air 04/28/19 04/28/19 04/29/19 04/29/19 22:05 23:05 00:04 01:05 Temp 98.7 98.8 98.5 98.6 98.7 98.8 98.5 98.6 Pulse 74 77 76 74 Resp 16 16 18 B/P (MAP) 141/63 138/72 143/71 139/71 04/29/19 04/29/19 04/29/19 02:14 02:14 07:00 Temp 98.2 98.7 97.9 98.2 98.7 97.9 Pulse 68 68 74 Resp 16 16 18 B/P (MAP) 139/61 139/61 (87) 145/67 (93) Pulse Ox 98 92 O2 Delivery Room Air Room Air Intake and Output 04/28/19 04/28/19 04/29/19 14:59 22:59 06:59 Intake Total 608 ml 320 ml Output Total 1 ml 1100 ml Balance 607 ml -780 ml JOSE VILLEGAS MD Apr 29, 2019 09:16
--- NOTE | 2019-04-29 10:57 | PDOC ---
Subjective: Subjective: Still with black stools. Hgb 8.9 after PRBCs Objective: Vital Signs: Vital Signs Date Time Temp Pulse Resp B/P (MAP) Pulse Ox O2 Delivery O2 Flow Rate FiO2 04/29/19 07:00 97.9 74 18 145/67 (93) 92 Room Air 97.9 Labs: Laboratory Tests Test 04/28/19 14:45 04/29/19 04:10 04/29/19 08:00 White Blood Count 6.4 x10^3/uL (4.0-11.0) 6.6 x10^3/uL (4.0-11.0) 5.7 x10^3/uL (4.0-11.0) Red Blood Count 2.24 x10^6/uL (4.30-5.70) 2.92 x10^6/uL (4.30-5.70) 2.95 x10^6/uL (4.30-5.70) Hemoglobin 6.9 g/dL (13.0-17.5) 8.7 g/dL (13.0-17.5) 8.9 g/dL (13.0-17.5) Hematocrit 20.6 % (39.0-53.0) 26.4 % (39.0-53.0) 26.5 % (39.0-53.0) Mean Corpuscular Volume 92 fL (79-100) 90 fL (79-100) 90 fL (79-100) Mean Corpuscular Hemoglobin 31 pg (25-35) 30 pg (25-35) 30 pg (25-35) Mean Corpuscular Hemoglobin Concent 33 g/dL (31-37) 33 g/dL (31-37) 34 g/dL (31-37) Red Cell Distribution Width 14.5 % (11.5-14.5) 14.0 % (11.5-14.5) 13.8 % (11.5-14.5) Platelet Count 176 x10^3/uL (140-400) 163 x10^3/uL (140-400) 158 x10^3/uL (140-400) Neutrophils (%) (Auto) 72 % (31-73) 66 % (31-73) 66 % (31-73) Lymphocytes (%) (Auto) 18 % (24-48) 24 % (24-48) 22 % (24-48) Monocytes (%) (Auto) 10 % (0-9) 10 % (0-9) 11 % (0-9) Eosinophils (%) (Auto) 0 % (0-3) 0 % (0-3) 0 % (0-3) Basophils (%) (Auto) 0 % (0-3) 0 % (0-3) 0 % (0-3) Neutrophils # (Auto) 4.6 x10^3/uL (1.8-7.7) 4.3 x10^3/uL (1.8-7.7) 3.8 x10^3/uL (1.8-7.7) Lymphocytes # (Auto) 1.1 x10^3/uL (1.0-4.8) 1.5 x10^3/uL (1.0-4.8) 1.3 x10^3/uL (1.0-4.8) Monocytes # (Auto) 0.6 x10^3/uL (0.0-1.1) 0.7 x10^3/uL (0.0-1.1) 0.7 x10^3/uL (0.0-1.1) Eosinophils # (Auto) 0.0 x10^3/uL (0.0-0.7) 0.0 x10^3/uL (0.0-0.7) 0.0 x10^3/uL (0.0-0.7) Basophils # (Auto) 0.0 x10^3/uL (0.0-0.2) 0.0 x10^3/uL (0.0-0.2) 0.0 x10^3/uL (0.0-0.2) Prothrombin Time 13.9 SEC (11.7-14.0) Prothromb Time International Ratio 1.1 (0.8-1.1) Activated Partial Thromboplast Time 27 SEC (24-38) Urine Collection Type Unknown Urine Color Yellow Urine Clarity Clear Urine pH 5.5 Urine Specific [place] 1.020 Urine Protein Negative mg/dL (NEG-TRACE) Urine Glucose (UA) Negative mg/dL (NEG) Urine Ketones (Stick) Negative mg/dL (NEG) Urine Blood Negative (NEG) Urine Nitrite Negative (NEG) Urine Bilirubin Negative (NEG) Urine Urobilinogen Dipstick 0.2 mg/dL (0.2 mg/dL) Urine Leukocyte Esterase Negative (NEG) Urine RBC 0 /HPF (0-2) Urine WBC 0 /HPF (0-4) Urine Squamous Epithelial Cells Few /LPF Urine Bacteria 0 /HPF (0-FEW) Stool Occult Blood Positive (NEG) Sodium Level 136 mmol/L (136-145) 142 mmol/L (136-145) Potassium Level 3.8 mmol/L (3.5-5.1) 4.1 mmol/L (3.5-5.1) Chloride Level 104 mmol/L (98-107) 109 mmol/L (98-107) Carbon Dioxide Level 26 mmol/L (21-32) 25 mmol/L (21-32) Anion Gap 6 (6-14) 8 (6-14) Blood Urea Nitrogen 36 mg/dL (8-26) 19 mg/dL (8-26) Creatinine 1.4 mg/dL (0.7-1.3) 1.1 mg/dL (0.7-1.3) Estimated GFR (Cockcroft-Gault) 60.6 80.1 BUN/Creatinine Ratio 26 (6-20) Glucose Level 134 mg/dL (70-99) 110 mg/dL (70-99) Calcium Level 8.9 mg/dL (8.5-10.1) 9.2 mg/dL (8.5-10.1) Iron Level 67 ug/dL (65-175) Total Iron Binding Capacity 261 ug/dL (250-450) Iron Saturation 26 % (15-34) Total Bilirubin 0.2 mg/dL (0.2-1.0) Aspartate Amino Transf (AST/SGOT) 17 U/L (15-37) Alanine Aminotransferase (ALT/SGPT) 20 U/L (16-63) Alkaline Phosphatase 56 U/L (46-116) Troponin I Quantitative < 0.017 ng/mL (0.000-0.055) DG-Ogk-Z-Type Natriuretic Peptide 105 pg/mL (0-124) Total Protein 6.7 g/dL (6.4-8.2) Albumin 3.4 g/dL (3.4-5.0) Albumin/Globulin Ratio 1.0 (1.0-1.7) Lipase 90 U/L (73-393) Physical Exam: Physical Exam: PE: GEN: NAD HEENT: Atraumatic, PERRL LUNGS: CTAB HEART: RRR ABD: NABS, S/ND/NT EXTREMITY: No edema SKIN: No rashes, no jaundice NEURO/PSYCH: A & O 3 Assessment & Plan: Assessment : A Melenic stools Anemia, hemoccult positive H/o perforated ulcer CRC screen - none ?CKD ASA use Mesenteric paniculitis- 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
--- NOTE | 2019-04-29 11:24 | EKG ---
[facility] [address] [place] [address] Test Date: 2019-04-28 Test Time: 17:20:19 Pat Name: DAREN CALDWELL Department: Room: [facility] [place] Gender: M [employer]: : 1950 Requested By: JUANY GRIFFITH Order Number: [id number] Reading MD: Noe Harvey MD Measurements Intervals [place] Rate: 90 P: 59 MA: 190 QRS: 26 QRSD: 84 T: 72 QT: 356 QTc: 439 Interpretive Statements SINUS RHYTHM Electronically Signed On 05-09-2019 12:53:57 CDT by Noe Harvey MD
[2019-04-29] MEDS ORDERED: AMLO10TA8 PO (13:45)
[2019-04-29] MEDS ORDERED: ATOR20TA58 PO (13:45)
[2019-04-29] MEDS ORDERED: ASPI-612 PO (13:45)
[2019-04-29] MEDS ORDERED: TAMS0.4C97 PO (13:45)
[2019-04-29] MEDS ORDERED: HYDR-2145 PO (13:45)
[2019-04-29] MEDS ORDERED: LISI-130 PO (13:45)
[2019-04-29] MEDS: hydroCHLOROthiazide 25 MG TABLET PO SCH (14:55)
[2019-04-29] MEDS: TAMSULOSIN 0.4 MG CAP.ER.24H. PO SCH (14:55)
[2019-04-29] MEDS: amLODIPine BESYLATE 10 MG TABLET PO SCH (14:55)
[2019-04-29] MEDS: LISINOPRIL 20 MG TABLET PO SCH (14:56)
[2019-04-29] MEDS: ATORVASTATIN CALCIUM 20 MG TABLET PO SCH (20:22)
[2019-04-30 03:45] VITALS: BP 143/68
[2019-04-30 05:25] LABS: BASO % 0 % (0-3); EOS % 0 % (0-3); HEMATOCRIT 27.4 % (39.0-53.0); HEMOGLOBIN 9.3 g/dL (13.0-17.5); LYMPH # 1.1 x10^3/uL (1.0-4.8); LYMPH % 21 % (24-48); MEAN CORPUSCULAR HEMOGLOBIN 31 pg (25-35); MEAN CORPUSCULAR HGB CONC 34 g/dL (31-37); MEAN CORPUSCULAR VOLUME 91 fL (79-100); MONO # 0.7 x10^3/uL (0.0-1.1); MONO % 13 % (0-9); NEUT # 3.6 x10^3/uL (1.8-7.7); NEUT % 66 % (31-73); PLATELET COUNT 160 x10^3/uL (140-400); WHITE BLOOD COUNT 5.4 x10^3/uL (4.0-11.0)
[2019-04-30 05:39] LABS: ALBUMIN 3.1 g/dL (3.4-5.0); ALBUMIN/GLOBULIN RATIO 0.9 (1.0-1.7); CALCIUM 9.2 mg/dL (8.5-10.1); CREATININE 1.1 mg/dL (0.7-1.3); GFR 80.1; POTASSIUM 3.7 mmol/L (3.5-5.1); TOTAL BILIRUBIN 0.4 mg/dL (0.2-1.0); TOTAL PROTEIN 6.5 g/dL (6.4-8.2)
[2019-04-30 07:00] VITALS: BP 148/72
[2019-04-30] MEDS: hydroCHLOROthiazide 25 MG TABLET PO SCH (10:08)
[2019-04-30] MEDS: amLODIPine BESYLATE 10 MG TABLET PO SCH (10:08)
[2019-04-30] MEDS: TAMSULOSIN 0.4 MG CAP.ER.24H. PO SCH (10:08)
[2019-04-30] MEDS: LISINOPRIL 20 MG TABLET PO SCH (10:09)
[2019-04-30] MEDS: PANTOPRAZOLE SODIUM IV DRIP 80 MG in IV NORMAL SALINE 100ML 100 ML IV SCH ×2 (10:09→17:34)
[2019-04-30 10:51] VITALS: BP 142/68
--- NOTE | 2019-04-30 11:08 | PDOC ---
PROGRESS NOTES Chief Complaint Chief Complaint IMPRESSION Acute blood loss anemia - improved Hb from 6.9 to 9.3 with 2u PRBC H/o perforated ulcer REMOTE Mesenteric panniculitis with decreased mesenteric edema since the prior study. ON CT prominent tortuosity of the sigmoid colon however there is no evidence of a closed loop obstruction or dilation of the more proximal bowel to suggest volvulus ELLY - likely vasomotor nephropathy from poor PO intake, constipation, Cr improved from 1.1 HTN HLD Dizziness Back pain GUIAC POS STOOL hx alcohol abuse, drinks 3-4 beers a day PLAN EGD IN AM 05/01 GI FOLLOWING CBC IN AM monitor for alcohol withdrawal History of Present Illness History of Present Illness Mr Spann is a 69 y/o male w/ PMHx who c/o black stools and left-sided pain for 2 weeks with some epigastric tenderness who was found w/ Hgb 6.9, MCV 92, normal plt, BUN 36, Cr 1.4. Fecal occult was positive. Admitted with GI consulted for further care. dark melena stool NOTED PLANNED EGD Wednesday IV PROTONIX DRIP BP CONTROL 30 MIN PT EXAM, CHART REVIEW, > 50% OF TIME SPENT WITH EXAM, CHART REVIEW, PT CARE COORDINATION Vitals Vitals Vital Signs Date Time Temp Pulse Resp B/P (MAP) Pulse Ox O2 Delivery O2 Flow Rate FiO2 04/30/19 10:51 98.6 85 17 142/68 (92) 97 Room Air 98.6 Physical Exam General: Alert, Oriented X3, Cooperative, mild distress Lungs: Clear Abdomen: Normal bowel sounds, Soft, No tenderness Extremities: No cyanosis, No edema Skin: No rashes, No breakdown, No significant lesion Labs LABS CT abdomen and pelvis with contrast HISTORY: Melena, anemia, GI bleeding. PQRS statement: CT scans at this facility use dose reduction including either automated exposure control, iterative reconstructions, and /or weight based radiation dosing via mA and kV modification when appropriate to reduce radiation dose to as low as reasonably achievable. TECHNIQUE: Helical CT imaging abdomen and pelvis with 75 mL Omnipaque 300 intravenous contrast and oral contrast. COMPARISON: CT abdomen and pelvis February 12, 2011. Abdomen findings: Calcified granuloma left lung base. 7 cm right renal lower pole cyst and smaller bilateral renal hypodensities several of which are too small to characterize due to volume averaging but are stable to prior imaging most likely additional cysts. Adrenals, liver, gallbladder, pancreas and spleen are unremarkable. Groundglass density and subcentimeter mesenteric lymph nodes are mildly decreased since the prior exam with mild persistent edema most likely representing chronic or recurrent panniculitis. No enlarged adenopathy. Appendix is not visualized could be surgically absent or obscured by surrounding bowel loops no changes of appendicitis evident. No bowel obstruction or inflammatory change. There is prominent tortuosity of the sigmoid colon however there is no evidence of a closed loop obstruction or dilation of the more proximal bowel to suggest volvulus, and this is similar the prior exam. There is a large volume of stool. Aortoiliac artery calcified plaque. Pelvis findings: Bladder, prostate, rectum and bones are unremarkable. No pelvic fluid or adenopathy. IMPRESSION: 1. Large volume of stool may be constipation. Tortuosity of the sigmoid colon without volvulus as described above. 2. Appendix could not be visualized. 3. Renal cysts again demonstrated. 4. 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 Electronically signed by: Wallace Rodgers MD (04/28/2019 5:30 PM) [facility] Laboratory Tests Test 04/30/19 04:00 White Blood Count 5.4 x10^3/uL (4.0-11.0) Red Blood Count 3.00 x10^6/uL (4.30-5.70) Hemoglobin 9.3 g/dL (13.0-17.5) Hematocrit 27.4 % (39.0-53.0) Mean Corpuscular Volume 91 fL (79-100) Mean Corpuscular Hemoglobin 31 pg (25-35) Mean Corpuscular Hemoglobin Concent 34 g/dL (31-37) Red Cell Distribution Width 14.0 % (11.5-14.5) Platelet Count 160 x10^3/uL (140-400) Neutrophils (%) (Auto) 66 % (31-73) Lymphocytes (%) (Auto) 21 % (24-48) Monocytes (%) (Auto) 13 % (0-9) Eosinophils (%) (Auto) 0 % (0-3) Basophils (%) (Auto) 0 % (0-3) Neutrophils # (Auto) 3.6 x10^3/uL (1.8-7.7) Lymphocytes # (Auto) 1.1 x10^3/uL (1.0-4.8) Monocytes # (Auto) 0.7 x10^3/uL (0.0-1.1) Eosinophils # (Auto) 0.0 x10^3/uL (0.0-0.7) Basophils # (Auto) 0.0 x10^3/uL (0.0-0.2) Sodium Level 140 mmol/L (136-145) Potassium Level 3.7 mmol/L (3.5-5.1) Chloride Level 106 mmol/L (98-107) Carbon Dioxide Level 26 mmol/L (21-32) Anion Gap 8 (6-14) Blood Urea Nitrogen 12 mg/dL (8-26) Creatinine 1.1 mg/dL (0.7-1.3) Estimated GFR (Cockcroft-Gault) 80.1 BUN/Creatinine Ratio 11 (6-20) Glucose Level 103 mg/dL (70-99) Calcium Level 9.2 mg/dL (8.5-10.1) Total Bilirubin 0.4 mg/dL (0.2-1.0) Aspartate Amino Transf (AST/SGOT) 13 U/L (15-37) Alanine Aminotransferase (ALT/SGPT) 17 U/L (16-63) Alkaline Phosphatase 47 U/L (46-116) Total Protein 6.5 g/dL (6.4-8.2) Albumin 3.1 g/dL (3.4-5.0) Albumin/Globulin Ratio 0.9 (1.0-1.7) Assessment and Plan Assessmemt and Plan Problems Medical Problems: (1) Anemia Status: Acute (2) Back pain Status: Acute (3) Dizziness Status: Acute (4) GI bleeding Status: Acute (5) Renal insufficiency Status: Acute Comment Review of Relevant I have reviewed the following items ignacio (where applicable) has been applied. Labs Laboratory Tests Test 04/28/19 14:45 04/29/19 04:10 04/29/19 08:00 04/30/19 04:00 White Blood Count 6.4 x10^3/uL (4.0-11.0) 6.6 x10^3/uL (4.0-11.0) 5.7 x10^3/uL (4.0-11.0) 5.4 x10^3/uL (4.0-11.0) Red Blood Count 2.24 x10^6/uL (4.30-5.70) 2.92 x10^6/uL (4.30-5.70) 2.95 x10^6/uL (4.30-5.70) 3.00 x10^6/uL (4.30-5.70) Hemoglobin 6.9 g/dL (13.0-17.5) 8.7 g/dL (13.0-17.5) 8.9 g/dL (13.0-17.5) 9.3 g/dL (13.0-17.5) Hematocrit 20.6 % (39.0-53.0) 26.4 % (39.0-53.0) 26.5 % (39.0-53.0) 27.4 % (39.0-53.0) Mean Corpuscular Volume 92 fL (79-100) 90 fL (79-100) 90 fL (79-100) 91 fL (79-100) Mean Corpuscular Hemoglobin 31 pg (25-35) 30 pg (25-35) 30 pg (25-35) 31 pg (25-35) Mean Corpuscular Hemoglobin Concent 33 g/dL (31-37) 33 g/dL (31-37) 34 g/dL (31-37) 34 g/dL (31-37) Red Cell Distribution Width 14.5 % (11.5-14.5) 14.0 % (11.5-14.5) 13.8 % (11.5-14.5) 14.0 % (11.5-14.5) Platelet Count 176 x10^3/uL (140-400) 163 x10^3/uL (140-400) 158 x10^3/uL (140-400) 160 x10^3/uL (140-400) Neutrophils (%) (Auto) 72 % (31-73) 66 % (31-73) 66 % (31-73) 66 % (31-73) Lymphocytes (%) (Auto) 18 % (24-48) 24 % (24-48) 22 % (24-48) 21 % (24-48) Monocytes (%) (Auto) 10 % (0-9) 10 % (0-9) 11 % (0-9) 13 % (0-9) Eosinophils (%) (Auto) 0 % (0-3) 0 % (0-3) 0 % (0-3) 0 % (0-3) Basophils (%) (Auto) 0 % (0-3) 0 % (0-3) 0 % (0-3) 0 % (0-3) Neutrophils # (Auto) 4.6 x10^3/uL (1.8-7.7) 4.3 x10^3/uL (1.8-7.7) 3.8 x10^3/uL (1.8-7.7) 3.6 x10^3/uL (1.8-7.7) Lymphocytes # (Auto) 1.1 x10^3/uL (1.0-4.8) 1.5 x10^3/uL (1.0-4.8) 1.3 x10^3/uL (1.0-4.8) 1.1 x10^3/uL (1.0-4.8) Monocytes # (Auto) 0.6 x10^3/uL (0.0-1.1) 0.7 x10^3/uL (0.0-1.1) 0.7 x10^3/uL (0.0-1.1) 0.7 x10^3/uL (0.0-1.1) Eosinophils # (Auto) 0.0 x10^3/uL (0.0-0.7) 0.0 x10^3/uL (0.0-0.7) 0.0 x10^3/uL (0.0-0.7) 0.0 x10^3/uL (0.0-0.7) Basophils # (Auto) 0.0 x10^3/uL (0.0-0.2) 0.0 x10^3/uL (0.0-0.2) 0.0 x10^3/uL (0.0-0.2) 0.0 x10^3/uL (0.0-0.2) Prothrombin Time 13.9 SEC (11.7-14.0) Prothromb Time International Ratio 1.1 (0.8-1.1) Activated Partial Thromboplast Time 27 SEC (24-38) Urine Collection Type Unknown Urine Color Yellow Urine Clarity Clear Urine pH 5.5 Urine Specific [place] 1.020 Urine Protein Negative mg/dL (NEG-TRACE) Urine Glucose (UA) Negative mg/dL (NEG) Urine Ketones (Stick) Negative mg/dL (NEG) Urine Blood Negative (NEG) Urine Nitrite Negative (NEG) Urine Bilirubin Negative (NEG) Urine Urobilinogen Dipstick 0.2 mg/dL (0.2 mg/dL) Urine Leukocyte Esterase Negative (NEG) Urine RBC 0 /HPF (0-2) Urine WBC 0 /HPF (0-4) Urine Squamous Epithelial Cells Few /LPF Urine Bacteria 0 /HPF (0-FEW) Stool Occult Blood Positive (NEG) Sodium Level 136 mmol/L (136-145) 142 mmol/L (136-145) 140 mmol/L (136-145) Potassium Level 3.8 mmol/L (3.5-5.1) 4.1 mmol/L (3.5-5.1) 3.7 mmol/L (3.5-5.1) Chloride Level 104 mmol/L (98-107) 109 mmol/L (98-107) 106 mmol/L (98-107) Carbon Dioxide Level 26 mmol/L (21-32) 25 mmol/L (21-32) 26 mmol/L (21-32) Anion Gap 6 (6-14) 8 (6-14) 8 (6-14) Blood Urea Nitrogen 36 mg/dL (8-26) 19 mg/dL (8-26) 12 mg/dL (8-26) Creatinine 1.4 mg/dL (0.7-1.3) 1.1 mg/dL (0.7-1.3) 1.1 mg/dL (0.7-1.3) Estimated GFR (Cockcroft-Gault) 60.6 80.1 80.1 BUN/Creatinine Ratio 26 (6-20) 11 (6-20) Glucose Level 134 mg/dL (70-99) 110 mg/dL (70-99) 103 mg/dL (70-99) Calcium Level 8.9 mg/dL (8.5-10.1) 9.2 mg/dL (8.5-10.1) 9.2 mg/dL (8.5-10.1) Iron Level 67 ug/dL (65-175) Total Iron Binding Capacity 261 ug/dL (250-450) Iron Saturation 26 % (15-34) Total Bilirubin 0.2 mg/dL (0.2-1.0) 0.4 mg/dL (0.2-1.0) Aspartate Amino Transf (AST/SGOT) 17 U/L (15-37) 13 U/L (15-37) Alanine Aminotransferase (ALT/SGPT) 20 U/L (16-63) 17 U/L (16-63) Alkaline Phosphatase 56 U/L (46-116) 47 U/L (46-116) Troponin I Quantitative < 0.017 ng/mL (0.000-0.055) EK-Ioy-X-Type Natriuretic Peptide 105 pg/mL (0-124) Total Protein 6.7 g/dL (6.4-8.2) 6.5 g/dL (6.4-8.2) Albumin 3.4 g/dL (3.4-5.0) 3.1 g/dL (3.4-5.0) Albumin/Globulin Ratio 1.0 (1.0-1.7) 0.9 (1.0-1.7) Lipase 90 U/L (73-393) Laboratory Tests Test 04/30/19 04:00 White Blood Count 5.4 x10^3/uL (4.0-11.0) Red Blood Count 3.00 x10^6/uL (4.30-5.70) Hemoglobin 9.3 g/dL (13.0-17.5) Hematocrit 27.4 % (39.0-53.0) Mean Corpuscular Volume 91 fL (79-100) Mean Corpuscular Hemoglobin 31 pg (25-35) Mean Corpuscular Hemoglobin Concent 34 g/dL (31-37) Red Cell Distribution Width 14.0 % (11.5-14.5) Platelet Count 160 x10^3/uL (140-400) Neutrophils (%) (Auto) 66 % (31-73) Lymphocytes (%) (Auto) 21 % (24-48) Monocytes (%) (Auto) 13 % (0-9) Eosinophils (%) (Auto) 0 % (0-3) Basophils (%) (Auto) 0 % (0-3) Neutrophils # (Auto) 3.6 x10^3/uL (1.8-7.7) Lymphocytes # (Auto) 1.1 x10^3/uL (1.0-4.8) Monocytes # (Auto) 0.7 x10^3/uL (0.0-1.1) Eosinophils # (Auto) 0.0 x10^3/uL (0.0-0.7) Basophils # (Auto) 0.0 x10^3/uL (0.0-0.2) Sodium Level 140 mmol/L (136-145) Potassium Level 3.7 mmol/L (3.5-5.1) Chloride Level 106 mmol/L (98-107) Carbon Dioxide Level 26 mmol/L (21-32) Anion Gap 8 (6-14) Blood Urea Nitrogen 12 mg/dL (8-26) Creatinine 1.1 mg/dL (0.7-1.3) Estimated GFR (Cockcroft-Gault) 80.1 BUN/Creatinine Ratio 11 (6-20) Glucose Level 103 mg/dL (70-99) Calcium Level 9.2 mg/dL (8.5-10.1) Total Bilirubin 0.4 mg/dL (0.2-1.0) Aspartate Amino Transf (AST/SGOT) 13 U/L (15-37) Alanine Aminotransferase (ALT/SGPT) 17 U/L (16-63) Alkaline Phosphatase 47 U/L (46-116) Total Protein 6.5 g/dL (6.4-8.2) Albumin 3.1 g/dL (3.4-5.0) Albumin/Globulin Ratio 0.9 (1.0-1.7) Medications Current Medications Pantoprazole Sodium (PROTONIX VIAL for IV PUSH) 40 mg 1X ONCE IVP Last administered on 04/28/19at 15:07; Start 04/28/19 at 14:45; Stop 04/28/19 at 14:52; Status DC Sodium Chloride 1,000 ml @ 1,000 mls/hr 1X ONCE IV Last administered on 04/28/19at 15:07; Start 04/28/19 at 14:45; Stop 04/28/19 at 15:44; Status DC Sodium Chloride 1,000 ml @ 100 mls/hr Q10H IV Last administered on 04/29/19at 11:54; Start 04/28/19 at 15:37; Stop 04/29/19 at 15:36; Status DC Pantoprazole Sodium 80 mg/ Sodium Chloride 100 ml @ 10 mls/hr Q10H IV Last administered on 04/30/19at 10:09; Start 04/28/19 at 15:45 Iohexol (Omnipaque 240 Mg/ml) 30 ml 1X ONCE PO Last administered on 04/28/19at 16:00; Start 04/28/19 at 16:00; Stop 04/28/19 at 16:01; Status DC Iohexol (Omnipaque 300 Mg/ml) 75 ml 1X ONCE IV Last administered on 04/28/19at 17:00; Start 04/28/19 at 16:00; Stop 04/28/19 at 16:01; Status DC Info (CONTRAST GIVEN -- Rx MONITORING) 1 each PRN DAILY PRN MC SEE COMMENTS; Start 04/28/19 at 16:00; Stop 04/30/19 at 15:59 Bisacodyl (Dulcolax Supp) 10 mg PRN DAILY PRN RI CONSTIPATION; Start 04/29/19 at 09:15 Amlodipine Besylate (Norvasc) 10 mg DAILY PO Last administered on 04/30/19at 10:08; Start 04/29/19 at 14:30 Atorvastatin Calcium (Lipitor) 20 mg QHS PO Last administered on 04/29/19at 20:22; Start 04/29/19 at 21:00 Hydrochlorothiazide (Hydrodiuril) 25 mg DAILY PO Last administered on 04/30/19at 10:08; Start 04/29/19 at 14:30 Lisinopril (Prinivil) 40 mg DAILY PO Last administered on 04/30/19at 10:09; Start 04/29/19 at 14:30 Tamsulosin HCl (Flomax) 0.4 mg DAILY PO Last administered on 04/30/19at 10:08; Start 04/29/19 at 14:30 Active Scripts Active Reported Aspirin Ec (Aspirin) 81 Mg Tablet. 1 Tab PO DAILY Hydrochlorothiazide Tablet (Hydrochlorothiazide) 25 Mg Tablet 25 Mg PO DAILY Atorvastatin Calcium 20 Mg Tablet 1 Tab PO DAILY Lisinopril 40 Mg Tablet 1 Tab PO DAILY Amlodipine Besylate 10 Mg Tablet 10 Mg PO DAILY Flomax (Tamsulosin Hcl) 0.4 Mg Cap.er.24h 1 Cap PO DAILY Vitals/I & O Vital Sign - Last 24 Hours 04/29/19 04/29/19 04/29/19 04/29/19 12:06 14:55 14:56 15:00 Temp 98.3 98.1 98.3 98.1 Pulse 75 75 75 77 Resp 18 18 B/P (MAP) 150/68 (95) 150/68 150/68 150/70 (96) Pulse Ox 95 96 O2 Delivery Room Air Room Air 04/29/19 04/29/19 04/29/19 04/30/19 19:45 20:00 23:45 03:45 Temp 99.1 99.7 98.5 99.1 99.7 98.5 Pulse 77 74 79 Resp 18 18 18 B/P (MAP) 134/68 (90) 134/66 (88) 143/68 (93) Pulse Ox 97 97 96 O2 Delivery Room Air Room Air Room Air Room Air 04/30/19 04/30/19 04/30/19 04/30/19 07:00 10:08 10:09 10:51 Temp 98.7 98.6 98.7 98.6 Pulse 87 87 87 85 Resp 17 17 B/P (MAP) 148/72 (97) 148/72 148/72 142/68 (92) Pulse Ox 96 97 O2 Delivery Room Air Room Air Intake and Output 04/29/19 04/29/19 04/30/19 15:00 23:00 07:00 Intake Total 0 ml 400 ml 300 ml Output Total 1400 ml 650 ml Balance -1400 ml 400 ml -350 ml SEELNA MORALES MD Apr 30, 2019 11:08
[2019-04-30 15:00] VITALS: BP 138/70
--- NOTE | 2019-04-30 15:34 | PDOC ---
Subjective: Subjective: Hgb 9.3 Objective: Vital Signs: Vital Signs Date Time Temp Pulse Resp B/P (MAP) Pulse Ox O2 Delivery O2 Flow Rate FiO2 04/30/19 15:00 98.6 87 17 138/70 (92) 97 Room Air 98.6 Labs: Laboratory Tests Test 04/30/19 04:00 White Blood Count 5.4 x10^3/uL (4.0-11.0) Red Blood Count 3.00 x10^6/uL (4.30-5.70) Hemoglobin 9.3 g/dL (13.0-17.5) Hematocrit 27.4 % (39.0-53.0) Mean Corpuscular Volume 91 fL (79-100) Mean Corpuscular Hemoglobin 31 pg (25-35) Mean Corpuscular Hemoglobin Concent 34 g/dL (31-37) Red Cell Distribution Width 14.0 % (11.5-14.5) Platelet Count 160 x10^3/uL (140-400) Neutrophils (%) (Auto) 66 % (31-73) Lymphocytes (%) (Auto) 21 % (24-48) Monocytes (%) (Auto) 13 % (0-9) Eosinophils (%) (Auto) 0 % (0-3) Basophils (%) (Auto) 0 % (0-3) Neutrophils # (Auto) 3.6 x10^3/uL (1.8-7.7) Lymphocytes # (Auto) 1.1 x10^3/uL (1.0-4.8) Monocytes # (Auto) 0.7 x10^3/uL (0.0-1.1) Eosinophils # (Auto) 0.0 x10^3/uL (0.0-0.7) Basophils # (Auto) 0.0 x10^3/uL (0.0-0.2) Sodium Level 140 mmol/L (136-145) Potassium Level 3.7 mmol/L (3.5-5.1) Chloride Level 106 mmol/L (98-107) Carbon Dioxide Level 26 mmol/L (21-32) Anion Gap 8 (6-14) Blood Urea Nitrogen 12 mg/dL (8-26) Creatinine 1.1 mg/dL (0.7-1.3) Estimated GFR (Cockcroft-Gault) 80.1 BUN/Creatinine Ratio 11 (6-20) Glucose Level 103 mg/dL (70-99) Calcium Level 9.2 mg/dL (8.5-10.1) Total Bilirubin 0.4 mg/dL (0.2-1.0) Aspartate Amino Transf (AST/SGOT) 13 U/L (15-37) Alanine Aminotransferase (ALT/SGPT) 17 U/L (16-63) Alkaline Phosphatase 47 U/L (46-116) Total Protein 6.5 g/dL (6.4-8.2) Albumin 3.1 g/dL (3.4-5.0) Albumin/Globulin Ratio 0.9 (1.0-1.7) Physical Exam: Physical Exam: Physical Exam: Physical Exam: PE: GEN: NAD HEENT: Atraumatic, PERRL LUNGS: CTAB HEART: RRR ABD: NABS, S/ND/NT EXTREMITY: No edema SKIN: No rashes, no jaundice NEURO/PSYCH: A & O 3 Assessment & Plan: Assessment : A Melenic stools Anemia, hemoccult positive H/o perforated ulcer CRC screen - none ?CKD ASA use Mesenteric paniculitis- improved on CT -- Plan: Monitor Hgb Plan for EGD Wednesday ARIAN DAVIES MD Apr 30, 2019 15:34
[2019-04-30 19:45] VITALS: BP 130/79
[2019-04-30] MEDS: LORazepam 1 MG TABLET PO SCH (20:58)
[2019-04-30] MEDS: ATORVASTATIN CALCIUM 20 MG TABLET PO SCH (20:58)
[2019-04-30 23:45] VITALS: BP 128/67
[2019-05-01 03:45] VITALS: BP 137/73
[2019-05-01] MEDS: LORazepam 1 MG TABLET PO SCH ×4 (04:33→17:57)
[2019-05-01] MEDS: PANTOPRAZOLE SODIUM IV DRIP 80 MG in IV NORMAL SALINE 100ML 100 ML IV SCH (05:22)
[2019-05-01 07:41] VITALS: BP 135/76
[2019-05-01] MEDS: LISINOPRIL 20 MG TABLET PO SCH (09:00)
[2019-05-01] MEDS: TAMSULOSIN 0.4 MG CAP.ER.24H. PO SCH (09:00)
[2019-05-01] MEDS: hydroCHLOROthiazide 25 MG TABLET PO SCH (09:00)
[2019-05-01] MEDS: amLODIPine BESYLATE 10 MG TABLET PO SCH (09:00)
--- NOTE | 2019-05-01 09:30 | NUR ---
SW following pt for dc planning. Chart reviewed, pt lives at home with spouse. Planning EGD today. No SW needs noted at this time. SW will be available as needed.
--- NOTE | 2019-05-01 11:15 | PDOC ---
PROGRESS NOTES Chief Complaint Chief Complaint IMPRESSION Acute blood loss anemia - improved Hb from 6.9 to 9.3 with 2u PRBC H/o perforated ulcer REMOTE Mesenteric panniculitis with decreased mesenteric edema since the prior study. ON CT prominent tortuosity of the sigmoid colon however there is no evidence of a closed loop obstruction or dilation of the more proximal bowel to suggest volvulus ELLY - likely vasomotor nephropathy from poor PO intake, constipation, Cr improved from 1.1 HTN HLD Dizziness Back pain GUIAC POS STOOL hx alcohol abuse, drinks 3-4 beers a day PLAN EGD GI FOLLOWING CBC IN AM monitor for alcohol withdrawal History of Present Illness History of Present Illness Mr Spann is a 69 y/o male w/ PMHx who c/o black stools and left-sided pain for 2 weeks with some epigastric tenderness who was found w/ Hgb 6.9, MCV 92, normal plt, BUN 36, Cr 1.4. Fecal occult was positive. Admitted with GI consulted for further care. dark melena stool NOTED PLANNED EGD today IV PROTONIX DRIP BP CONTROL 27 MIN PT EXAM, CHART REVIEW, > 50% OF TIME SPENT WITH EXAM, CHART REVIEW, PT CARE COORDINATION Vitals Vitals Vital Signs Date Time Temp Pulse Resp B/P (MAP) Pulse Ox O2 Delivery O2 Flow Rate FiO2 05/01/19 09:00 86 135/76 05/01/19 08:00 Room Air 05/01/19 07:41 98.2 16 97 98.2 Physical Exam General: Alert, Oriented X3, Cooperative, No acute distress Heart: Regular rate, Normal S1, Normal S2, No murmurs Lungs: Clear Abdomen: Normal bowel sounds, Soft, No tenderness Extremities: No clubbing, No cyanosis, No edema Skin: No rashes, No breakdown, No significant lesion Assessment and Plan Assessmemt and Plan Problems Medical Problems: (1) Anemia Status: Acute (2) Back pain Status: Acute (3) Dizziness Status: Acute (4) GI bleeding Status: Acute (5) Renal insufficiency Status: Acute Comment Review of Relevant I have reviewed the following items ignacio (where applicable) has been applied. Labs Laboratory Tests Test 04/30/19 04:00 White Blood Count 5.4 x10^3/uL (4.0-11.0) Red Blood Count 3.00 x10^6/uL (4.30-5.70) Hemoglobin 9.3 g/dL (13.0-17.5) Hematocrit 27.4 % (39.0-53.0) Mean Corpuscular Volume 91 fL (79-100) Mean Corpuscular Hemoglobin 31 pg (25-35) Mean Corpuscular Hemoglobin Concent 34 g/dL (31-37) Red Cell Distribution Width 14.0 % (11.5-14.5) Platelet Count 160 x10^3/uL (140-400) Neutrophils (%) (Auto) 66 % (31-73) Lymphocytes (%) (Auto) 21 % (24-48) Monocytes (%) (Auto) 13 % (0-9) Eosinophils (%) (Auto) 0 % (0-3) Basophils (%) (Auto) 0 % (0-3) Neutrophils # (Auto) 3.6 x10^3/uL (1.8-7.7) Lymphocytes # (Auto) 1.1 x10^3/uL (1.0-4.8) Monocytes # (Auto) 0.7 x10^3/uL (0.0-1.1) Eosinophils # (Auto) 0.0 x10^3/uL (0.0-0.7) Basophils # (Auto) 0.0 x10^3/uL (0.0-0.2) Sodium Level 140 mmol/L (136-145) Potassium Level 3.7 mmol/L (3.5-5.1) Chloride Level 106 mmol/L (98-107) Carbon Dioxide Level 26 mmol/L (21-32) Anion Gap 8 (6-14) Blood Urea Nitrogen 12 mg/dL (8-26) Creatinine 1.1 mg/dL (0.7-1.3) Estimated GFR (Cockcroft-Gault) 80.1 BUN/Creatinine Ratio 11 (6-20) Glucose Level 103 mg/dL (70-99) Calcium Level 9.2 mg/dL (8.5-10.1) Total Bilirubin 0.4 mg/dL (0.2-1.0) Aspartate Amino Transf (AST/SGOT) 13 U/L (15-37) Alanine Aminotransferase (ALT/SGPT) 17 U/L (16-63) Alkaline Phosphatase 47 U/L (46-116) Total Protein 6.5 g/dL (6.4-8.2) Albumin 3.1 g/dL (3.4-5.0) Albumin/Globulin Ratio 0.9 (1.0-1.7) Medications Current Medications Pantoprazole Sodium (PROTONIX VIAL for IV PUSH) 40 mg 1X ONCE IVP Last administered on 04/28/19at 15:07; Start 04/28/19 at 14:45; Stop 04/28/19 at 14:52; Status DC Sodium Chloride 1,000 ml @ 1,000 mls/hr 1X ONCE IV Last administered on 04/28/19at 15:07; Start 04/28/19 at 14:45; Stop 04/28/19 at 15:44; Status DC Sodium Chloride 1,000 ml @ 100 mls/hr Q10H IV Last administered on 04/29/19at 11:54; Start 04/28/19 at 15:37; Stop 04/29/19 at 15:36; Status DC Pantoprazole Sodium 80 mg/ Sodium Chloride 100 ml @ 10 mls/hr Q10H IV Last administered on 05/01/19at 05:22; Start 04/28/19 at 15:45 Iohexol (Omnipaque 240 Mg/ml) 30 ml 1X ONCE PO Last administered on 04/28/19at 16:00; Start 04/28/19 at 16:00; Stop 04/28/19 at 16:01; Status DC Iohexol (Omnipaque 300 Mg/ml) 75 ml 1X ONCE IV Last administered on 04/28/19at 17:00; Start 04/28/19 at 16:00; Stop 04/28/19 at 16:01; Status DC Info (CONTRAST GIVEN -- Rx MONITORING) 1 each PRN DAILY PRN MC SEE COMMENTS; Start 04/28/19 at 16:00; Stop 04/30/19 at 15:59; Status DC Bisacodyl (Dulcolax Supp) 10 mg PRN DAILY PRN [place] CONSTIPATION; Start 04/29/19 at 09:15 Amlodipine Besylate (Norvasc) 10 mg DAILY PO Last administered on 04/30/19at 10:08; Start 04/29/19 at 14:30 Atorvastatin Calcium (Lipitor) 20 mg QHS PO Last administered on 04/30/19at 20:58; Start 04/29/19 at 21:00 Hydrochlorothiazide (Hydrodiuril) 25 mg DAILY PO Last administered on 04/30/19at 10:08; Start 04/29/19 at 14:30 Lisinopril (Prinivil) 40 mg DAILY PO Last administered on 04/30/19at 10:09; Start 04/29/19 at 14:30 Tamsulosin HCl (Flomax) 0.4 mg DAILY PO Last administered on 04/30/19at 10:08; Start 04/29/19 at 14:30 Multivitamins (Thera M Plus) 1 tab DAILY PO ; Start 05/05/19 at 09:00 Folic Acid (Folic Acid) 1 mg DAILY PO ; Start 05/05/19 at 09:00 Thiamine Mononitrate (Vitamin B-1) 100 mg DAILY PO ; Start 05/05/19 at 09:00 Lorazepam (Ativan) 1 mg Q6HRS PO Last administered on 04/30/19at 20:58; Start 04/30/19 at 18:00; Stop 05/02/19 at 00:01 Active Scripts Active Reported Aspirin Ec (Aspirin) 81 Mg Tablet.dr 1 Tab PO DAILY Hydrochlorothiazide Tablet (Hydrochlorothiazide) 25 Mg Tablet 25 Mg PO DAILY Atorvastatin Calcium 20 Mg Tablet 1 Tab PO DAILY Lisinopril 40 Mg Tablet 1 Tab PO DAILY Amlodipine Besylate 10 Mg Tablet 10 Mg PO DAILY Flomax (Tamsulosin Hcl) 0.4 Mg Cap.er.24h 1 Cap PO DAILY Vitals/I & O Vital Sign - Last 24 Hours 04/30/19 04/30/19 04/30/19 04/30/19 10:08 10:09 10:51 15:00 Temp 98.6 98.6 98.6 98.6 Pulse 87 87 85 87 Resp 17 17 B/P (MAP) 148/72 148/72 142/68 (92) 138/70 (92) Pulse Ox 97 97 O2 Delivery Room Air Room Air 04/30/19 04/30/19 04/30/19 05/01/19 19:45 20:00 23:45 03:45 Temp 99.2 99.2 98.4 99.2 99.2 98.4 Pulse 93 84 82 Resp 18 18 18 B/P (MAP) 130/79 (96) 128/67 (87) 137/73 (94) Pulse Ox 98 96 96 O2 Delivery Room Air Room Air Room Air Room Air 05/01/19 05/01/19 05/01/19 05/01/19 07:41 08:00 09:00 09:00 Temp 98.2 98.2 Pulse 86 86 86 Resp 16 B/P (MAP) 135/76 (95) 135/76 135/76 Pulse Ox 97 O2 Delivery Room Air Room Air Intake and Output 04/30/19 05/01/19 05/01/19 17:00 01:00 09:00 Intake Total 600 ml 700 ml 300 ml Balance 600 ml 700 ml 300 ml SELENA MORALES MD May 01, 2019 11:15
[2019-05-01 11:48] VITALS: BP 127/69
[2019-05-01] MEDS ORDERED: IV RINGERS,LACTATED 1000ML 1,000 ML IV ONE (13:00)
[2019-05-01] MEDS ORDERED: PROPOFOL 20 ML IV ONE (13:34)
--- NOTE | 2019-05-01 13:56 | PDOC4 ---
PROCEDURE Procedure EGD/biopsies Indication: melena/acute anemia Meds: per anesthesia Findings: E--Irregular z line at 40 cm. G--Fine nodularity antrum, biopsied. D--1 cm active ulcer, pyloric channel with clean base. Multiple pseudodiverticula (healed ulcers) in bulb. Area of apparent adenomatous change, ~12-15mm, in second portion, biopsied. Nicholas. well. IMP: Reflux esophagitis. Gastritis, H.pylori suspect, biopsied. Active clean-based channel ulcer. Multiple scars, bulb Flat likely adenomatous area, second portion duodenum, biopsied. REC: Await biopsies. PO PPI. Diet advanced. ALFONSO GOLDSTEIN MD May 01, 2019 13:56
[2019-05-01 14:52] VITALS: BP 127/64
[2019-05-01 19:57] VITALS: BP 111/59
[2019-05-01] MEDS: ATORVASTATIN CALCIUM 20 MG TABLET PO SCH (20:20)
[2019-05-01 23:01] VITALS: BP 140/68
[2019-05-02] MEDS: LORazepam 1 MG TABLET PO SCH
[2019-05-02 03:44] VITALS: BP 137/72
[2019-05-02 07:15] VITALS: BP 137/70
[2019-05-02] MEDS ORDERED: PANTOPRAZOLE 40 MG TABLET.DR. PO SCH (07:30)
[2019-05-02] MEDS: TAMSULOSIN 0.4 MG CAP.ER.24H. PO SCH (09:50)
[2019-05-02] MEDS: amLODIPine BESYLATE 10 MG TABLET PO SCH (09:51)
[2019-05-02] MEDS: LISINOPRIL 20 MG TABLET PO SCH (09:51)
[2019-05-02] MEDS: hydroCHLOROthiazide 25 MG TABLET PO SCH (09:52)
--- NOTE | 2019-05-02 10:29 | PDOC ---
Subjective: Subjective: No complaints, would like to go home. Objective: Vital Signs: Vital Signs Date Time Temp Pulse Resp B/P (MAP) Pulse Ox O2 Delivery O2 Flow Rate FiO2 05/02/19 09:51 88 137/70 05/02/19 07:15 99.2 18 98 Room Air 99.2 Imaging: EGD 05/01/19 E--Irregular z line at 40 cm. G--Fine nodularity antrum, biopsied. D--1 cm active ulcer, pyloric channel with clean base. Multiple ps eudodiverticula (healed ulcers) in bulb. Area of apparent adenomatous change, ~12-15mm, in second portion, biopsied. IMP: Reflux esophagitis. Gastritis, H.pylori suspect, biopsied. Active clean-based channel ulcer. Multiple scars, bulb Flat likely adenomatous area, second portion duodenum, biopsied. PE: GEN: NAD LUNGS: CTAB HEART: RRR ABD: NABS, S/ND/NT NEURO/PSYCH: A & O 3 A/P: Dark stools - resolved Anemia - improved (checked 04/30) H/o perforated ulcer GERD, gastritis, DU, pseudodiverticula in duodenal bulb (healed ulcers), ?duodenal adenoma -- Dr. Keenan - prefers to consult oncology now while path is pending. Pt would like to discharge - will review w/ Dr. Be. Continue PPI. Will review timing to resume ASA w/ Dr. Be. DARLING JOHNSON May 02, 2019 10:29
--- NOTE | 2019-05-02 10:47 | PDOC ---
[facility] PROGRESS NOTE Chief Complaint Chief Complaint IMPRESSION Acute blood loss anemia - improved Hb from 6.9 to 9.3 with 2u PRBC H/o perforated ulcer REMOTE Mesenteric panniculitis with decreased mesenteric edema since the prior study. ON CT prominent tortuosity of the sigmoid colon however there is no evidence of a closed loop obstruction or dilation of the more proximal bowel to suggest volvulus ELLY - likely vasomotor nephropathy from poor PO intake, constipation, Cr improved from 1.1 HTN HLD Dizziness Back pain GUIAC POS STOOL hx alcohol abuse, drinks 3-4 beers a day PLAN EGD GI FOLLOWING CBC IN AM monitor for alcohol withdrawal History of Present Illness History of Present Illness Mr Spann is a 69 y/o male w/ PMHx who c/o black stools and left-sided pain for 2 weeks with some epigastric tenderness who was found w/ Hgb 6.9, MCV 92, normal plt, BUN 36, Cr 1.4. Fecal occult was positive. Admitted with GI consulted for further care. Patient complaining of left lower back pain for about 15 days as a constant sharp pain without radiation and rated his pain as a moderate pain. Patient also complaining of episodes of black stool for the same time that was loose for the first few days and became formed for the last few days. Patient states he has had a bowel movement once a day or once every other day and denies rectal pain, nausea and vomiting, fever and chills, hematuria, ecchymosis, taking lots in her medication. Complaining of mild abdominal pain and states for the last 2 weeks had positional dizziness associated with palpitation and generalized weakness and shortness of breath without chest pain. Patient denies history of GI bleeding but state he had history of ulcer disease. Patient did not seek medical attention for the last 2 weeks and today he called his primary care physician and was recommended to come to emergency room. dark melena stool NOTED PLANNED EGD today IV PROTONIX DRIP BP CONTROL 27 MIN PT EXAM, CHART REVIEW, > 50% OF TIME SPENT WITH EXAM, CHART REVIEW, PT CARE COORDINATION 05/02: Patient Seen and examined, KAI RN about his abdominal mass in the second portion of the duodenum. Adenoma is suspected. Patient was given 2 units of bl ood, and we have noted an improvement in his Hgb levels from 6.8 on 04/28 to 8.7 on 04/29. Awaiting consultation with heme/onc. Vitals/I&O Vitals/I&O: Vital Signs Date Time Temp Pulse Resp B/P (MAP) Pulse Ox O2 Delivery O2 Flow Rate FiO2 05/02/19 09:51 88 137/70 05/02/19 07:15 99.2 18 98 Room Air 99.2 I & O 05/01/19 05/01/19 05/02/19 14:59 22:59 06:59 Intake Total 700 ml 240 ml 300 ml Balance 700 ml 240 ml 300 ml Physical Exam General: Alert, Oriented X3, Cooperative, No acute distress Heart: Regular rate, Normal S1, Normal S2, No murmurs Lungs: Clear Abdomen: Normal bowel sounds, Soft, No tenderness Extremities: No clubbing, No cyanosis, No edema Skin: No rashes, No breakdown, No significant lesion Review of Systems Review of Systems: Patient denies SOB and weakness Assessment and Plan Assessmemt and Plan Problems Medical Problems: (1) Anemia Status: Acute (2) Back pain Status: Acute (3) Dizziness Status: Acute (4) GI bleeding Status: Acute (5) Renal insufficiency Status: Acute Assessment: Anemia, Back pain, dizziness, GI bleed, renal insufficiency, Abdominal mass in the second portion of the duodenum. Plan: 1. consult heme/onc (Dr. Chadwick) and await further input 2. monitor Hgb 3. cardiac monitoring 4. Labs 5. DVT prophylaxis 6. Full code Comment Review of Relevant I have reviewed the following items ignacio (where applicable) has been applied. Medications: Current Medications Medications (Trade) Dose Ordered Sig/Lo Route PRN Reason Start Time Stop Time Status Last Admin Dose Admin Ringer's Solution 1,000 ml @ 75 mls/hr 1X ONCE IV 05/01/19 13:00 05/02/19 02:19 DC 05/01/19 13:14 Pantoprazole Sodium (Protonix) 40 mg DAILYAC PO 05/02/19 07:30 05/02/19 09:50 KIRAN MARTE III DO May 02, 2019 10:47
[2019-05-02 11:00] VITALS: BP 120/60
[2019-05-02 15:00] VITALS: BP 91/53
--- NOTE | 2019-05-02 17:19 | NUR ---
Discharge Note: DAREN CALDWELL Discharge instructions and discharge home medications reviewed with Patient and a copy given. All questions have been answered and understanding verbalized. The following instructions and handouts were given: follow up instructions. Discontinued lines and drains: 20 gauge right fa, tip intact. patient tolerated well. Patient discharged to home with self care via family.
--- NOTE | 2019-05-03 15:07 | PATHOLOGY ---
[facility] Accession Number: [id number] . 01 Material submitted: . PART A: duodenum - SECOND PORTION OF DUODENUM BIOPSY. Modifiers: second PART B: stomach - ANTRAL BIOPSY . 01 Clinical history: . GI bleed . 02 Diagnosis: A. Duodenal biopsies, second portion of duodenum: - Tubular adenoma. . B. Gastric biopsies, antrum: - Chronic gastritis, moderate to marked, focally active, with rare Helicobacter organisms identified. (JPM:spencer; 05/03/2019) S 05/03/2019 0957 Local . 02 Comment: Sections of the second portion of duodenum biopsy reveal a tubular adenoma showing no high-grade dysplasia or evidence of malignancy. . Sections of the gastric antral biopsy show focally active, moderate to marked chronic inflammation. A properly controlled immunoperoxidase stain for Helicobacter reveals rare Helicobacter organisms. There is no evidence of malignancy. (JPM:spencer; 05/03/2019) . . Special stain performed: Immunoperoxidase stain for Helicobacter on B1. . 02 Electronically signed: . Bobo Bentley MD, Pathologist NPI- [id number] . 01 Gross description: . A. Received in formalin labeled "Carveronica, Clister, 2nd portion of duodenum Bx," are five fragments of castro-brown soft tissue measuring 0.7 x 0.6 x 0.2 cm in aggregate dimensions and ranging from 0.1 to 0.4 cm in maximum dimension. The specimen is submitted entirely in cassette A1. The smallest fragment may not survive processing. . B. Received in formalin labeled "Carvin, Clister, antral Bx" are three fragments of castro-brown soft tissue measuring 0.5 x 0.5 x 0.2 cm in aggregate dimensions and ranging from 0.1 to 0.5 cm in maximum dimension. The specimen is submitted entirely in cassette B1. The smallest fragment may not survive processing. (DAC; 05/02/2019) XDC/XDC 05/02/2019 0729 Local . 02 Pathologist provided ICD-10: K31.7, K29.50 . 02 CPT . 163242, 672564, X85109 Specimen Comment: A courtesy copy of this report has been sent to Specimen Comment: [phone], , . Specimen Comment: Report sent to ,DR GRIFFITH / DR ESPINOZA Performed at: 01 [facility] [address], [place], [place] [id number] MD Srikanth Pearson MD Phone: [phone] Performed at: 02 [facility] [address] [place], [place] [id number] MD Bobo Bentley MD Phone: [phone]
--- NOTE | 2019-05-04 09:13 | DS ---
DATE OF DISCHARGE: 05/02/2019 ADMISSION DIAGNOSIS: Gastrointestinal bleed. DISCHARGE DIAGNOSIS: Resolving gastrointestinal bleed, but we found a mass on EGD (the pathology report is pending, but he wanted to go home, so we discharged with close outpatient followup with his endoscopist). HOSPITAL COURSE: The patient is a pleasant 69-year-old male who presented with GI bleeding. He was admitted. We transfused him, took him for endoscopy, they did find what appeared to be a villous adenoma on the endoscopy, a biopsy was taken. We plan on keep him for another day or two, waiting the report, but he really wanted to go home. We discharged and explained he needs to see his endoscopist within a few days. DISPOSITION: Home. ACTIVITY: As tolerated. DIET: Low sodium. MEDICATIONS: Please see MRAD. TOTAL TIME: 32 minutes. KIRAN MARTE DO DR: DOROTHEA/yesenia JOB#: [id number] / [id number]
[2019-05-05] MEDS ORDERED: THIAMINE 100 MG TABLET. PO SCH (09:00)
[2019-05-05] MEDS ORDERED: FOLIC ACID 1 MG TABLET. PO SCH (09:00)
[2019-05-05] MEDS ORDERED: MULTIVITAMIN with MINERAL TABLET. PO SCH (09:00)
== END 2019-05-02 16:00 | disposition home or self-care (01) | DRG 377 ==
LOC: ER 13:32 → 6 SOUTH 14:45
PROVIDERS: ADMIT Internal Medicine; ATTEND Internal Medicine
PROC: 0DB98ZX Excision of Duodenum, Via Natural or Artificial Opening Endoscopic, Diagnostic (ICD-10-PCS; principal; 2019-04-28)
PROC: 0DB68ZX Excision of Stomach, Via Natural or Artificial Opening Endoscopic, Diagnostic (ICD-10-PCS; 2019-04-28)
PROC: 30233N1 Transfusion of Nonautologous Red Blood Cells into Peripheral Vein, Percutaneous Approach (ICD-10-PCS; 2019-04-28)
DX: K26.4 Chronic or unspecified duodenal ulcer with hemorrhage (principal); N17.0 Acute kidney failure with tubular necrosis; D62 Acute posthemorrhagic anemia; K65.4 Sclerosing mesenteritis; D48.9 Neoplasm of uncertain behavior, unspecified; E78.00 Pure hypercholesterolemia, unspecified; E78.5 Hyperlipidemia, unspecified; K59.00 Constipation, unspecified; N28.1 Cyst of kidney, acquired; K21.0 Gastro-esophageal reflux disease with esophagitis; J30.9 Allergic rhinitis, unspecified; B96.81 Helicobacter pylori [H. pylori] as the cause of diseases classified elsewhere; Z79.82 Long term (current) use of aspirin; Z80.42 Family history of malignant neoplasm of prostate; Z83.3 Family history of diabetes mellitus; K29.70 Gastritis, unspecified, without bleeding
CPT/HCPCS: 36415; 36430; 43239; 74177; 80048; 80053; 81001; 82274; 83540; 83550; 83690; 83880; 84484; 85025; 85610; 85730; 86850; 86900; 86901; 86920; 88305; 88342; 93005; C9113; J2704; J7030; J7120; P9016; Q9966; Q9967; 99285-25; G0378

== ENCOUNTER → 2019-06-12 | Day surgery (SDC) | payer MEDICARE ==
[~2019-06-12] MED LIST: AMLO10TA8 PO; ASPI-612 PO; ATOR20TA58 PO; HYDR-2145 PO; IV RINGERS,LACTATED 1000ML 1,000 ML IV ONE; LISI-130 PO; OMEP40CA45 PO; TAMS0.4C97 PO
== END ==
LOC: ENDOS 13:29
PROVIDERS: ATTEND Internal Medicine Gastroenterology
DX: Z53.09 Procedure and treatment not carried out because of other contraindication (principal)

== ENCOUNTER → 2019-06-26 | Day surgery (SDC) | payer MEDICARE ==
[~2019-06-26] MED LIST changes: -IV RINGERS,LACTATED 1000ML 1,000 ML IV ONE; +IV RINGERS,LACTATED 1000ML 1,000 ML IV SCH; +LIDOCAINE 2% PF 5 ML VIAL. ONE; +PROPOFOL 20 ML IV ONE
--- NOTE | 2019-06-26 13:13 | PDOC4 ---
PROCEDURE Procedure EGD/APC ablation of duodenal polyp. IND: Known duodenal adenoma Meds: per anesthesia Findings: E--Healed esophagitis at 43cm. G--Normal D--pseudodiverticula, bulb. Sessile 12-15 mm polyp in proximal second portion above papilla. Polyp ablated all visible portions with APC. Nicholas. well. IMP: GERD Healed ulcers/pseudodiverticula, bulb. Duodenal adenoma, all surfaces ablated; will likely need further sessions, however. REC: Resume meds, diet as before. Stay on PPI. Repeat EGD in 4 weeks. ALFONSO GOLDSTEIN MD Jun 26, 2019 13:13
[2019-06-26 13:39] VITALS: BP 168/74
== END ==
LOC: ENDOS 12:01
PROVIDERS: ATTEND Internal Medicine Gastroenterology
DX: K31.7 Polyp of stomach and duodenum (principal); K21.0 Gastro-esophageal reflux disease with esophagitis; K26.9 Duodenal ulcer, unspecified as acute or chronic, without hemorrhage or perforation; D64.9 Anemia, unspecified; I10 Essential (primary) hypertension; E78.00 Pure hypercholesterolemia, unspecified; Z72.89 Other problems related to lifestyle
CPT/HCPCS: 43270; J2001; J2704; 43255

== ENCOUNTER → 2019-09-04 | Day surgery (SDC) | payer MEDICARE ==
[~2019-09-04] MED LIST changes: +HYDROmorphone 2 MG/ML VIAL IV PRN; +LIDOCAINE 1% PF 2 ML VIAL. ID PRN; +MORPHINE SULFATE 2 MG/ML VIAL. IV PRN; +ONDANSETRON PF 4 MG/2 ML VIAL. IV PRN; +PROCHLORPERAZINE 10 MG/2 ML VIAL. IV PRN; +fentaNYL PF VIAL 100 MCG/2 ML VIAL IV PRN
--- NOTE | 2019-09-04 12:31 | PDOC1 ---
History and Physical Date of Admission Date of Admission DATE: 09/04/19 TIME: 12:26 Source Source: Chart review, Patient History of Present Illness History of Present Illness 69 y/o male with duodenal adenoma too flat to remove in May 2019 when scoped for bleeding DU. On PPI since. H.pylori positive, but yet to treat. One outpatient treatment with APC for the adenoma and returns for re-treatment today. No complaints. Past Medical History Cardiovascular: HTN Pulmonary: No pertinent hx Hepatobiliary: No pertinent hx Psych: No pertinent hx Musculoskeletal: low back pain Infectious disease: No pertinent hx Past Surgical History Past Surgical History: Other (remote lap/oversew ulcer at [place]) Family History Family History: Other (no [facility]) Social History ALCOHOL: none Drugs: None Current Medications Current Medications Current Medications Ondansetron HCl (Zofran) 4 mg PRN Q6HRS PRN IV NAUSEA/VOMITING; Start 09/04/19 at 07:00; Stop 09/05/19 at 06:59 Fentanyl Citrate (Fentanyl 2ml Vial) 25 mcg PRN Q5MIN PRN IV MILD PAIN 1-3; Start 09/04/19 at 07:00; Stop 09/05/19 at 06:59 Fentanyl Citrate (Fentanyl 2ml Vial) 50 mcg PRN Q5MIN PRN IV MODERATE TO SEVERE PAIN; Start 09/04/19 at 07:00; Stop 09/05/19 at 06:59 Morphine Sulfate (Morphine Sulfate) 1 mg PRN Q10MIN PRN IV SEVERE PAIN 7-10; Start 09/04/19 at 07:00; Stop 09/05/19 at 06:59 Ringer's Solution 1,000 ml @ 30 mls/hr Q24H IV ; Start 09/04/19 at 07:00; Stop 09/04/19 at 18:59 Lidocaine HCl (Xylocaine-Mpf 1% 2ml Vial) 2 ml PRN 1X PRN ID PRIOR TO IV START; Start 09/04/19 at 07:00; Stop 09/05/19 at 06:59 Hydromorphone HCl (Dilaudid) 0.5 mg PRN Q10MIN PRN IV SEV PAIN, Second choice; Start 09/04/19 at 07:00; Stop 09/05/19 at 06:59 Prochlorperazine Edisylate (Compazine) 5 mg PACU PRN PRN IV NAUSEA, MRX1; Start 09/04/19 at 07:00; Stop 09/05/19 at 06:59 Active Scripts Active Reported Omeprazole 40 Mg Capsule.dr 40 Mg PO DAILY Hydrochlorothiazide Tablet (Hydrochlorothiazide) 25 Mg Tablet 25 Mg PO DAILY Atorvastatin Calcium 20 Mg Tablet 1 Tab PO DAILY Lisinopril 40 Mg Tablet 1 Tab PO DAILY Amlodipine Besylate 10 Mg Tablet 10 Mg PO DAILY Flomax (Tamsulosin Hcl) 0.4 Mg Cap.er.24h 1 Cap PO DAILY Allergies Allergies: Coded Allergies: No Known Drug Allergies (Unverified , 09/04/19) ROS Review of System Otherwise negative. Physical Exam General: Alert, Oriented X3, Cooperative, No acute distress Lungs: Clear to auscultation Heart: S1S2, RRR, no gallops, no murmurs Abdomen: Normal bowel sounds, Soft, No tenderness, No hepatosplenomegaly, No masses Rectal Exam: not examined Extremities: No edema Skin: No significant lesion Neuro: Normal gait, Normal speech, Strength at 5/5 X4 ext, Normal tone, Sensation intact, Cranial nerves 3-12 NL, Reflexes 2+ Psych/Mental Status: Mental status NL, Mood NL Vitals Vitals See nursing record. VTE Prophylaxis Ordered VTE Prophylaxis Devices: No VTE Pharmacological Prophylaxi: No Assessment/Plan Assessment/Plan IMP: Duodenal adenoma DU, H.pylori-positive; yet to be treated. PLAN: EGD/further APC treatment of adenoma. ALFONSO GOLDSTEIN MD Sep 04, 2019 12:31
--- NOTE | 2019-09-04 13:09 | PDOC4 ---
PROCEDURE Procedure EGD/APC duodenal polyp Indication: Known duodenal adenoma; f/u re: effect of prior APC treatment. Meds: per anesthesia Findings: E--normal G--Normal D--Multiple healed ulcers/pseudodiverticula, bulb. Most of adenoma ablated. APC'd remnant. Nicholas. well. IMP: Minor adenomatous tissue left, further ablated. Healed ulcers, bulb. REC: Continue PPI. Repeat exam in 4 weeks. ALFONSO GOLDSTEIN MD Sep 04, 2019 13:09
[2019-09-04 13:38] VITALS: BP 150/74
== END | disposition home or self-care (01) ==
LOC: ENDOS 12:08
PROVIDERS: ATTEND Internal Medicine Gastroenterology
DX: K92.1 Melena (principal); K31.7 Polyp of stomach and duodenum; K31.89 Other diseases of stomach and duodenum; K25.9 Gastric ulcer, unspecified as acute or chronic, without hemorrhage or perforation; K64.9 Unspecified hemorrhoids; D64.9 Anemia, unspecified; I10 Essential (primary) hypertension; E78.00 Pure hypercholesterolemia, unspecified; Z72.89 Other problems related to lifestyle; Z79.899 Other long term (current) drug therapy; Z98.890 Other specified postprocedural states
CPT/HCPCS: 43270; J2704; J3490; 43235

== ENCOUNTER → 2019-12-28 | Outpatient (CLI) | payer MEDICARE ==
[2019-09-04 13:38] VITALS: BP 150/74
[~2019-12-28] MED LIST changes: -HYDROmorphone 2 MG/ML VIAL IV PRN; -IV RINGERS,LACTATED 1000ML 1,000 ML IV SCH; -LIDOCAINE 1% PF 2 ML VIAL. ID PRN; -LIDOCAINE 2% PF 5 ML VIAL. ONE; -MORPHINE SULFATE 2 MG/ML VIAL. IV PRN; -ONDANSETRON PF 4 MG/2 ML VIAL. IV PRN; -PROCHLORPERAZINE 10 MG/2 ML VIAL. IV PRN; -PROPOFOL 20 ML IV ONE; -fentaNYL PF VIAL 100 MCG/2 ML VIAL IV PRN
== END | disposition home or self-care (01) ==
LOC: LAB 13:59
PROVIDERS: ATTEND Internal Medicine Gastroenterology
DX: Z11.59 Encounter for screening for other viral diseases (principal)
CPT/HCPCS: 36415; U0003

== ENCOUNTER → 2020-01-01 | Day surgery (SDC) | payer MEDICARE ==
[~2020-01-01] MED LIST changes: -ASPI-612 PO; +ASPI-886 PO; +IV RINGERS,LACTATED 1000ML 1,000 ML IV SCH; +PROPOFOL 10 MG/ML (20ML) VIAL. IV ONE
--- NOTE | 2020-01-01 12:35 | PDOC1 ---
History and Physical Date of Admission Date of Admission DATE: 01/01/20 TIME: 12:29 Identification/Chief Complaint Chief Complaint Duodenal adenoma Source Source: Chart review, Patient History of Present Illness History of Present Illness 69 y/o male with flat duodenal adenoma identified 05/2019. APC treatment x 2, last August this year. Returns for re-assessment and further APC if needed. No complaints currently. H/o PUD, known H.pylori positive. Treatment held due to the adenoma. Past Medical History Cardiovascular: HTN Musculoskeletal: low back pain Past Surgical History Past Surgical History: Other (Laparotomy with oversew ulcer remotely at [place]) Family History Family History NO [facility] Family History: Other Social History Smoke: No ALCOHOL: none Drugs: None Current Medications Current Medications Current Medications Ringer's Solution 1,000 ml @ 50 mls/hr Q20H IV ; Start 01/01/20 at 07:00; Stop 01/01/20 at 18:59 Propofol (Diprivan) 200 mg STK-MED ONCE IV ; Start 01/01/20 at 12:25; Stop 01/01/20 at 12:26; Status DC Active Scripts Active Reported Omeprazole 40 Mg Capsule.dr 40 Mg PO DAILY Hydrochlorothiazide Tablet (Hydrochlorothiazide) 25 Mg Tablet 25 Mg PO DAILY Atorvastatin Calcium 20 Mg Tablet 1 Tab PO DAILY Lisinopril 40 Mg Tablet 1 Tab PO DAILY Amlodipine Besylate 10 Mg Tablet 10 Mg PO DAILY Flomax (Tamsulosin Hcl) 0.4 Mg Cap.er.24h 1 Cap PO DAILY Allergies Allergies: Coded Allergies: No Known Drug Allergies (Unverified , 01/01/20) ROS Review of System Otherwise negative. Physical Exam General: Alert, Oriented X3, Cooperative, No acute distress Lungs: Clear to auscultation Heart: S1S2, RRR, no gallops, no murmurs Abdomen: Normal bowel sounds, Soft, No tenderness, No hepatosplenomegaly, No masses Rectal Exam: not examined Extremities: No cyanosis, No edema Skin: No significant lesion Neuro: Normal speech, Strength at 5/5 X4 ext, Normal tone, Sensation intact, Cranial nerves 3-12 NL, Reflexes 2+ Psych/Mental Status: Mental status NL, Mood NL Vitals Vitals See nursing record. VTE Prophylaxis Ordered VTE Prophylaxis Devices: No VTE Pharmacological Prophylaxi: No Assessment/Plan Assessment/Plan IMP: Duodenal adenoma, due for surveillance/treatment. PLAN: EGD. ALFONSO GOLDSTEIN MD Jan 01, 2020 12:34
--- NOTE | 2020-01-01 12:56 | PDOC4 ---
PROCEDURE Procedure EGD/ablation of duodenal polyp Indication: H/o duodenal adenoma, APC x 2, F/u exam' Meds: per anesthesia Findings: E--Healed reflux. G--Non-specific erythema antrum D--large scar, bulb. Small residual adenoma second portion, APC'd. Nicholas. well. IMP: Duodenal adenoma, nearly fully ablated. Small remnant treated. PUD GERD REC: Continue PPI. No ASA, etc, for 2 weeks. Repeat exam in 2-3 months. At some point will address H.pylori. ALFONSO GOLDSTEIN MD Jan 01, 2020 12:56
[2020-01-01 13:17] VITALS: BP 137/72
== END ==
LOC: ENDOS 12:05
PROVIDERS: ATTEND Internal Medicine Gastroenterology
DX: K92.2 Gastrointestinal hemorrhage, unspecified (principal); K21.0 Gastro-esophageal reflux disease with esophagitis; K31.7 Polyp of stomach and duodenum
CPT/HCPCS: 43270; J2704; 43255

== ENCOUNTER → 2020-04-19 | Outpatient (CLI) | payer MEDICARE ==
[2020-01-01 13:17] VITALS: BP 137/72
[~2020-04-19] MED LIST changes: +AMLO-187 PO; -AMLO10TA8 PO; -IV RINGERS,LACTATED 1000ML 1,000 ML IV SCH; -PROPOFOL 10 MG/ML (20ML) VIAL. IV ONE
== END ==
LOC: LAB 13:31
PROVIDERS: ATTEND Internal Medicine Gastroenterology
DX: Z01.812 Encounter for preprocedural laboratory examination (principal); D13.2 Benign neoplasm of duodenum; Z20.828 Contact with and (suspected) exposure to other viral communicable diseases
CPT/HCPCS: U0003-CS

== ENCOUNTER → 2020-04-22 | Day surgery (SDC) | payer MEDICARE ==
[~2020-04-22] MED LIST changes: +IV RINGERS,LACTATED 1000ML 1,000 ML IV SCH; +LIDOCAINE 2% PF 5 ML VIAL. ONE; +PROPOFOL 10 MG/ML (20ML) VIAL. IV ONE
--- NOTE | 2020-04-22 12:43 | PDOC1 ---
History and Physical Date of Admission Date of Admission DATE: 04/22/20 TIME: 12:39 Source Source: Chart review, Patient History of Present Illness History of Present Illness F/u treatment for duodenal adenoma. Past Medical History Cardiovascular: HTN Musculoskeletal: low back pain Family History Family History: Family History Unknown Social History Smoke: No ALCOHOL: none Drugs: None Current Medications Current Medications Current Medications Ringer's Solution 1,000 ml @ 50 mls/hr Q20H IV Last administered on 04/22/20at 12:38; Start 04/22/20 at 07:00; Stop 04/22/20 at 18:59 Propofol (Diprivan) 200 mg STK-MED ONCE IV ; Start 04/22/20 at 12:34; Stop 04/22/20 at 12:34; Status DC Lidocaine HCl (Lidocaine Pf 2% Vial) 5 ml STK-MED ONCE .ROUTE ; Start 04/22/20 at 12:34; Stop 04/22/20 at 12:34; Status DC Active Scripts Active Reported Omeprazole 40 Mg Capsule.dr 40 Mg PO DAILY Hydrochlorothiazide Tablet (Hydrochlorothiazide) 25 Mg Tablet 25 Mg PO DAILY Atorvastatin Calcium 20 Mg Tablet 1 Tab PO DAILY Lisinopril 40 Mg Tablet 1 Tab PO DAILY Amlodipine Besylate 10 Mg Tablet 10 Mg PO DAILY Flomax (Tamsulosin Hcl) 0.4 Mg Cap.er.24h 1 Cap PO DAILY Allergies Allergies: Coded Allergies: No Known Drug Allergies (Unverified , 04/22/20) ROS Review of System Otherwise negative. Physical Exam General: Alert, Oriented X3, Cooperative, No acute distress Lungs: Clear to auscultation, Normal air movement Heart: S1S2, RRR, no gallops, no murmurs Abdomen: Normal bowel sounds, Soft, No tenderness, No hepatosplenomegaly, No masses Rectal Exam: not examined Extremities: No cyanosis, No edema Skin: No significant lesion Neuro: Normal speech, Strength at 5/5 X4 ext, Normal tone, Sensation intact, Cranial nerves 3-12 NL, Reflexes 2+ Psych/Mental Status: Mental status NL, Mood NL Vitals Vitals Vital Signs Date Time Temp Pulse Resp B/P (MAP) Pulse Ox O2 Delivery O2 Flow Rate FiO2 04/22/20 12:33 97.2 78 20 97 97.2 VTE Prophylaxis Ordered VTE Prophylaxis Devices: No VTE Pharmacological Prophylaxi: No Assessment/Plan Assessment/Plan IMP: Prior duodenal adenoma, post-APC. Effective? PLAN: EGD. ALFONSO GOLDSTEIN MD Apr 22, 2020 12:43
--- NOTE | 2020-04-22 13:10 | PDOC4 ---
PROCEDURE Procedure EGD/biopsies Ind: Duodenal adenoma Meds: per anesthesia Findings: E--Healed esophagitis at 40cm G--Normal D--multiple scars, bulb. Adenoma, 3 x 6mm at junction of bulb and second portion, biopsied off, hopefully totally. Nicholas. well. Imp: Healed reflux Healed ulcers Duodenal adenoma REC: Resume meds, diet. Await path. Repeat EGD 6-8 weeks. ALFONSO GOLDSTEIN MD Apr 22, 2020 13:10
[2020-04-22 13:32] VITALS: BP 143/75
--- NOTE | 2020-04-24 14:07 | PATHOLOGY ---
[facility] Accession Number: [id number] . 01 Material submitted: . duodenum - DUODENAL POLYP . 01 Clinical history: . HX DUODENAL ADENOMA . 02 Diagnosis: Small bowel "duodenal polyp", endoscopic biopsy: - Tubular adenoma; negative for high-grade dysplasia and malignancy. (MLK:pit; 04/23/2020) QTP 04/23/2020 1458 Local . 02 Electronically signed: . Sammy Frank MD, Pathologist NPI- [id number] . 01 Gross description: . The specimen is received in formalin, labeled "Clister Carvin, duodenal polyp". Received are five segments of pale castro soft tissue ranging in size from 0.1 to 0.4 cm in maximum dimensions. The specimen is submitted entirely in cassette A1. ([facility]; 04/22/2020) QA/QA 04/22/2020 1737 Local . 02 Pathologist provided ICD-10: D13.2 . 02 CPT . 832931 Specimen Comment: A courtesy copy of this report has been sent to [phone], [phone] Specimen Comment: [id number] Specimen Comment: Report sent to / DR DESAI Performed at: 01 [facility] [address], [place] [id number] MD Srikanth Pearson MD Phone: [phone] Performed at: 02 [facility] [address] [place], [place] [id number] MD Bobo Bentley MD Phone: [phone]
== END ==
LOC: ENDOS 12:14
PROVIDERS: ATTEND Internal Medicine Gastroenterology
DX: D13.2 Benign neoplasm of duodenum (principal); K21.00 Gastro-esophageal reflux disease with esophagitis, without bleeding; K31.89 Other diseases of stomach and duodenum; K31.7 Polyp of stomach and duodenum; I10 Essential (primary) hypertension; E78.00 Pure hypercholesterolemia, unspecified; E78.5 Hyperlipidemia, unspecified; Z87.891 Personal history of nicotine dependence; Z79.899 Other long term (current) drug therapy; Z83.3 Family history of diabetes mellitus
CPT/HCPCS: 43239; 88305; J2704